=== PATIENT | male | born 1960 | race Hispanic/Latino ===

== ENCOUNTER → 2023-06-03 | Emergency (ER) | payer OTHER ==
[~2023-06-03] MED LIST: CEFTRIAXONE 1000 MG/VIAL ONE; FAMOTIDINE 20 MG/2 ML VIAL IV ONE; FENTANYL CITR 100 MCG/2 ML ONE; HYDRALAZINE HCL 20 MG/ML VIAL ONE; METOCLOPRAMIDE 10 MG/2mL INJ ONE; NA CHLORIDE 0.9% 250 ML ONE; ONDANSETRON 4 MG/2 ML VIAL ONE; PANTOPRAZOLE 40 MG INJ ONE
[2023-06-03 20:47] LABS: Urine Bacteria None Seen /HPF (<20); Urine Bilirubin NEGATIVE (Negative); Urine Blood Negative (Negative); Urine Clarity Clear (Clear); Urine Color Light-Yellow (Yellow); Urine Glucose 1+ (Negative); Urine Mucus Slight /HPF (None Seen); Urine Protein 1+ (Negative); Urine RBC <5 /HPF (None Seen); Urine Urobilinogen Normal (Normal); Urine pH 7.5 (5.0-7.0)
--- NOTE | 2023-06-03 20:49 | RAD REPORT ---
EXAM DESCRIPTION: CT - Chest Abd Pelvis Wo Con - 06/03/2023 8:39 pm CLINICAL HISTORY: Chest and abdomen pain. vomiting blood COMPARISON: <Comparisons> TECHNIQUE: A limited noncontrast study was performed. All CT scans are performed using dose optimization technique as appropriate and may include automated exposure control or mA/KV adjustment according to patient size. FINDINGS: The lungs are clear.No pleural or pericardial effusion.No intrathoracic adenopathy. Noncontrast assessment of the liver and spleen is unremarkable. Both kidneys appear atrophic, greater on the left. There is mild fullness seen in the region of the pancreatic uncinate process of uncerta in significance. Atherosclerosis of the abdominal aorta is seen. Mild free fluid is seen in the abdomen. Peritoneal dialysis catheter tubing coils in the pelvis. No b owel obstruction, free air or abscess. Normal appendix. No pathologic lymphadenopathy in the abdomen or pelvis. Postsurgical changes lower lumbar spine. IMPRESSION: No acute abnormality is detected. Fullness of the pancreatic uncinate process is noted of unclear significance. Pancreatitis is a possi bility and may be clinically correlated.
[2023-06-03 21:23] LABS: Hematocrit 27.3 % (39.6-49.0); MCV 86.1 fL (80-100); Platelets 315 thou/uL (152-406); RBC Red Blood Cell Count 3.17 M/uL (4.33-5.43)
[2023-06-03 21:41] LABS: Albumin 2.3 g/dL (3.4-5.0); Bilirubin Total 0.4 mg/dL (0.2-1.0); C-Reactive Protein 51.5 mg/L (<3.00); Potassium 5.1 mEq/L (3.5-5.1); Protein, Total 5.8 g/dL (6.4-8.2)
--- NOTE | 2023-06-03 22:28 | ER ---
Nurse's Notes [facility] Name: Qasim Lafleur Jr Age: 63 yrs Sex: Male : 1960 Arrival Date: 06/03/2023 Time: 19:22 Bed 20 Private MD: Diagnosis: Pancreatitis, history of peritoneal dialysis, nausea vomiting;Acute pancreatitis Presentation: 06/03 19:57 Chief complaint: Spouse and/or significant other states: having ABD and vomiting km8 starting last night; pt has had this issue before; trying to see a GI doctor. Coronavirus screen: Client denies travel out of the [place] in the last 14 days. Ebola Screen: No symptoms or risks identified at this time. Initial Sepsis Screen: Does the patient meet any 2 criteria? No. Patient's initial sepsis screen is negative. Does the patient have a suspected source of infection? No. Patient's initial sepsis screen is negative. Risk Assessment: Do you want to hurt yourself or someone else? Patient reports no desire to harm self or others. Onset of symptoms was June 02, 2023. 19:57 Method Of Arrival: Wheelchair km8 19:57 Acuity: YUNI 3 km8 Triage Assessment: 19:59 General: Appears uncomfortable, Behavior is cooperative, anxious, restless. Pain: km8 Complains of pain in abdomen Pain currently is 9 out of 10 on a pain scale. EENT: EKUK. Neuro: Level of Consciousness is awake, alert, obeys commands, Oriented to person, place, time, situation. Cardiovascular: Denies chest pain, shortness of breath, Patient's skin is warm and dry. Respiratory: Airway is patent Respiratory effort is even, labored, Respiratory pattern is regular, symmetrical. GI: Abdomen is flat, Reports lower abdominal pain, upper abdominal pain, nausea, vomiting, peritoneal dialysis. : No signs and/or symptoms were reported regarding the genitourinary system. Derm: Skin is intact, is healthy with good turgor, Skin is dry, Skin is pink, warm \T\ dry. normal, Skin temperature is warm. Musculoskeletal: No signs and/or symptoms reported regarding the musculoskeletal system. Circulation, motion, and sensation intact. Range of motion: intact in all extremities. Historical: - Allergies: 19:59 Codeine; km8 19:59 Morphine; km8 - PMHx: 19:59 Dialysis pt; Hypertensive disorder; km8 - PSHx: 19:59 None; km8 - Immunization history:: Client reports receiving the 2nd dose of the Covid vaccine, Flu vaccine is up to date. - Social history:: Smoking status: Reported history of juuling and/or vaping. Patient/guardian denies using tobacco, Stopped _ months ago 3 Patient/guardian denies using alcohol, street drugs. - Family history:: not pertinent. Screenin:15 [facility] ED Fall Risk Assessment (Adult) History of falling in the last 3 months, me1 including since admission No falls in past 3 months (0 pts) Confusion or Disorientation No (0 pts) Intoxicated or Sedated No (0 pts) Impaired Gait No (0 pts) Mobility Assist Device Used No (0 pt) Altered Elimination No (0 pt) Score/Fall Risk Level 0 - 2 = Low Risk Maintained a safe environment, Provided non-skid footwear, Hourly rounding (assess needs \T\ fall precautionary measures) done. Abuse screen: Denies threats or abuse. Nutritional screening: No deficits noted. Tuberculosis screening: No symptoms or risk factors identified. Assessment: 20:15 General: Appears uncomfortable, ill, well groomed, well developed, well nourished, me1 Behavior is calm, cooperative, appropriate for age, Reports feeling ill for 12-24 hours, fatigue for abdominal pain, n/v. Pain: Complains of pain in abdomen Pain does not radiate. Pain currently is 8 out of 10 on a pain scale. Quality of pain is described as crampy, Pain began gradually, 1 day ago. Is continuous. Neuro: Level of Consciousness is awake, alert, obeys commands, Oriented to person, place, time, situation, Appropriate for age. Cardiovascular: Capillary refill < 3 seconds Patient's skin is warm and dry. Respiratory: Airway is patent Respiratory effort is even, unlabored, Respiratory pattern is regular, symmetrical. GI: Peritoneal dialysis catheter capped. Bowel sounds present X 4 quads. Abd is soft and non tender X 4 quads. : Reports burning with urination. 06/04 00:00 Reassessment: Patient appears in no apparent distress at this time. Patient and/or km8 family updated on plan of care and expected duration. Pain level reassessed. Patient is alert, oriented x 3, equal unlabored respirations, skin warm/dry/pink. 00:00 General: Appears in no apparent distress. comfortable, Behavior is calm, cooperative, km8 appropriate for age. Neuro: Level of Consciousness is awake, alert, obeys commands, Oriented to person, place, time, situation, Appropriate for age. Cardiovascular: Patient's skin is warm and dry. Respiratory: Airway is patent Respiratory effort is even, unlabored, Respiratory pattern is regular, symmetrical. Vital Signs: 06/03 19:57 BP 177 / 104; Pulse 77; Resp 16; Temp 97.5(IR); Pulse Ox 100% on R/A; Weight 68.04 kg km8 (R); Height 5 ft. 9 in. (R); Pain 9/10; 21:17 BP 190 / 89; Pulse 77; Resp 16; Pulse Ox 97% on R/A; me1 21:45 BP 186 / 88; Pulse 78; Resp 18; Pulse Ox 97% on R/A; me1 22:30 BP 176 / 92; Pulse 80; Resp 18; Pulse Ox 96% on R/A; me1 23:00 BP 172 / 108; Pulse 81; Resp 18; Pulse Ox 97% on R/A; me1 23:28 BP 191 / 97; Pulse 82; Resp 18; Pulse Ox 97% on R/A; ca1 06/04 00:01 BP 158 / 93; Pulse 91; Resp 18; Pulse Ox 98% on R/A; me1 00:13 BP 145 / 66; Pulse 87; Resp 18; Pulse Ox 98% on R/A; 8 00:30 BP 142 / 75; Pulse 88; Resp 18; Pulse Ox 97% on R/A; km8 00:45 BP 161 / 81; Pulse 88; Resp 18; Pulse Ox 99% on R/A; 8 06/03 19:57 Body Mass Index 22.15 (68.04 kg, 175.26 cm) [facility] 06/03 19:57 Pain Scale: Adult [facility] ED Course: 06/03 19:27 Patient arrived in ED. gm2 19:58 Triage completed. km8 19:59 Arm band placed on right wrist. 8 20:12 Scott Walters MD is Attending Physician. sp4 20:15 Patient has correct armband on for positive identification. Bed in low position. Call [facility] in reach. Side rails up X2. Provided Education on: POC. Verbalized understanding. . 20:15 No provider procedures requiring assistance completed. me1 20:21 Anastasiia Crook, RN is Primary Nurse. me1 20:33 Urinalysis w/ reflexes Sent. me1 20:41 CT Chest Abdomen Pelvis W/O Contrast In Process Unspecified. EDMS 22:27 Initiated transfer to [facility], spoke with Teresa Yoon. 23:04 Pt accepted for transfer to [facility] Rm: [address] Arboleda Eliot \T\ 2247 per Teresa Yoon. 23:15 EMS accepted for transport with an ETA \T\ 2335. 23:29 US Abdomen Limited In Process Unspecified. EDMS 23:40 Patient transferred, IV remains in place. ca1 06/04 00:29 Called Jon with EMS to get an updated ETA, she stated they should've been here already and that she will call them now. Administered Medications: 06/03 21:26 Drug: Ondansetron IVP 8 mg IVP once; over 2 minutes Route: IVP; Site: right antecubital;me1 22:04 Follow up: Response: No adverse reaction; Nausea is decreased me1 21:26 Drug: fentaNYL (PF) IVP 50 mcg IVP once Route: IVP; Site: right antecubital; me1 22:03 Follow up: Response: No adverse reaction; Pain is decreased me1 21:26 Drug: metoCLOPramide IVP 10 mg IVP once; over 1 to 2 minutes Route: IVP; Site: right ca1 antecubital; 22:03 Follow up: Response: No adverse reaction me1 21:26 Drug: Pantoprazole IV 8 mg/hr IV at 25 ml/hr continuous; (Standard dilution is 80 mg in me1 250 mL NS) Route: IV; Rate: 25 ml/hr; Site: right antecubital; 21:27 Drug: Pantoprazole IVP 80 mg IVP once Route: IVP; Site: right antecubital; me1 22:03 Follow up: Response: No adverse reaction me1 21:27 Drug: Rocephin - Rocephin (cefTRIAXone) IVPB 1 grams IVPB once over 30 mins; (mix in 50 me1 mL NS) Route: IVPB; Infused Over: 30 mins; Site: right antecubital; 21:28 Follow up: IV Status: Completed infusion me1 22:03 Follow up: Response: No adverse reaction me1 21:27 Drug: Famotidine IVP 20 mg IVP once; dilute with 10 mL 0.9% NaCl; give over 2 minutes me1 Route: IVP; Site: right antecubital; 22:03 Follow up: Response: No adverse reaction me1 23:26 Drug: hydrALAZINE IVP 10 mg IVP once Route: IVP; Site: right antecubital; me1 23:40 Follow up: Response: No adverse reaction me1 06/04 00:53 Follow up: Response: Blood pressure is lowered km8 Medication: 06/03 20:15 VIS not applicable for this client. me1 Outcome: 22:27 ER care complete, transfer ordered by . sp4 23:40 Transferred by [facility] to [facility], Transfer form completed. me1 Note: report given to MARIKA Cabrales. 23:40 Condition: stable 23:40 Instructed on the need for transfer, 06/04 00:54 Patient left the ED. km8 Signatures: Dispatcher [employer] EDTeri Jenkins Sergey, MD MD sp4 Anastasiia Crook RN RN ca1 Helen Sutton 2 Steffanie Franklin, MARIKA RN km8 Corrections: (The following items were deleted from the chart) 06/03 21:58 19:57 Chief complaint: Spouse and/or significant other states: having ABD and vomiting me1 starting last night; pt has had this issue before; trying to see a GI doctor km8 06/04 00:30 06/03 23:04 Pt acceptedd for transfer to [facility] Rm: 501 by Eliot Thrasher \T\ 2247 per Teresa Yoon
--- NOTE | 2023-06-03 22:28 | EDPHYS ---
Physician Documentation [facility] Name: Qasim Lafleur Jr Age: 63 yrs Sex: Male : 1960 Arrival Date: 06/03/2023 Time: 19:22 Bed 20 Private MD: ED Physician Scott Walters HPI: 06/03 22:26 This 63 yrs old Male presents to ER via Wheelchair with complaints of sp4 Abdominal Pain, Nausea/Vomiting, dialysis patient. 22:49 Very pleasant 63-year-old male with history of peritoneal dialysis, end-stage renal sp4 disease and hypertensive disorder. History of chronic spinal pain. History of prior L5-S1 surgery. . Patient has presented with 1 day of vomiting, epigastric abdominal pain, diarrhea as well. Patient undergoes daily peritoneal dialysis at home. Patient is ill-appearing on presentation and has active dry heaving in the waiting room . . Historical: - Allergies: 19:59 Codeine; km8 19:59 Morphine; km8 - PMHx: 19:59 Dialysis pt; Hypertensive disorder; km8 - PSHx: 19:59 None; km8 - Immunization history:: Client reports receiving the 2nd dose of the Covid vaccine, Flu vaccine is up to date. - Social history:: Smoking status: Reported history of juuling and/or vaping. Patient/guardian denies using tobacco, Stopped _ months ago 3 Patient/guardian denies using alcohol, street drugs. - Family history:: not pertinent. ROS: 22:49 Constitutional: Negative for fever, chills, and weight loss, positive abdominal pain, sp4 positive epigastric pain, positive vomiting, positive diarrhea. 22:49 All other systems are negative, Exam: 22:27 Abdomen/GI: Rectal exam reveals no blood or melena. No seizure, no fistula, no mass, sp4 no hemorrhoids, 22:49 Constitutional: This is a well developed, well nourished patient who is awake, alert, sp4 ill-appearing male, pale, dry heaving on exam Head/Face: Normocephalic, atraumatic. Eyes: Pupils equal round and reactive to light, extra-ocular motions intact. Lids and lashes normal. Conjunctiva and sclera are not injected. Cornea within normal limits. Periorbital areas with no swelling, redness, or edema. ENT: Nares patent. No nasal discharge, no septal abnormalities noted. Tympanic membranes are normal and external auditory canals are clear. Oropharynx with no redness, swelling, or masses, exudates, or evidence of obstruction, uvula midline. Mucous membranes moist. Neck: Trachea midline, no thyromegaly or masses palpated, and no cervical lymphadenopathy. Supple, full range of motion without nuchal rigidity, or vertebral point tenderness. Chest/axilla: Normal chest wall appearance and motion. Nontender with no deformity. No lesions are appreciated. Cardiovascular: Regular rate and rhythm with a normal S1 and S2. No gallops, murmurs, or rubs. Normal PMI, no JVD. No pulse deficits. Respiratory: Lungs have equal breath sounds bilaterally, clear to auscultation and percussion. No rales, rhonchi or wheezes noted. No increased work of breathing, no retractions or nasal flaring. Abdomen/GI: Soft, with normal bowel sounds. No distension or tympany. No guarding or rebound. There is epigastric tenderness on exam, no distention, peritoneal dialysis left upper abdominal quadrant.. No tympany and no signs of ascites. Back: No spinal tenderness. No costovertebral tenderness. There is sacral decubitus ulcer that is covered by the wound VAC. Male : Normal genitalia with no discharge or lesions. Skin: Warm, dry with normal turgor. Normal color with no rashes, no lesions, and no evidence of cellulitis. MS/ Extremity: Pulses equal, no cyanosis. Neurovascular intact. Full, normal range of motion. Neuro: Awake and alert, GCS 15, oriented to person, place, time, and situation. Cranial nerves II-XII grossly intact. Motor strength 5/5 in all extremities. Sensory grossly intact. Psych: Awake, alert, with orientation to person, place and time. Behavior, mood, and affect are within normal limits Vital Signs: 19:57 BP 177 / 104; Pulse 77; Resp 16; Temp 97.5(IR); Pulse Ox 100% on R/A; Weight 68.04 kg km8 (R); Height 5 ft. 9 in. (R); Pain 9/10; 21:17 BP 190 / 89; Pulse 77; Resp 16; Pulse Ox 97% on R/A; me1 21:45 BP 186 / 88; Pulse 78; Resp 18; Pulse Ox 97% on R/A; me1 22:30 BP 176 / 92; Pulse 80; Resp 18; Pulse Ox 96% on R/A; me1 23:00 BP 172 / 108; Pulse 81; Resp 18; Pulse Ox 97% on R/A; me1 23:28 BP 191 / 97; Pulse 82; Resp 18; Pulse Ox 97% on R/A; me1 06/04 00:01 BP 158 / 93; Pulse 91; Resp 18; Pulse Ox 98% on R/A; me1 00:13 BP 145 / 66; Pulse 87; Resp 18; Pulse Ox 98% on R/A; km8 00:30 BP 142 / 75; Pulse 88; Resp 18; Pulse Ox 97% on R/A; km8 00:45 BP 161 / 81; Pulse 88; Resp 18; Pulse Ox 99% on R/A; [facility] 06/03 19:57 Body Mass Index 22.15 (68.04 kg, 175.26 cm) [facility] 06/03 19:57 Pain Scale: Adult [facility] MDM: 06/03 20:12 Patient medically screened. sp4 22:47 Data reviewed: vital signs, nurses notes, old medical records, EKG, radiologic studies, sp4 CT scan. Consideration of Admission/Observation Patient was admitted/placed on observation. Management of patient was discussed with the following: Hospitalist: Alphonse Mccabe MD - Hospitalist at [facility]. ED course: Patient was accepted for transfer to [facility]. Primary problem is peritoneal dialysis that cannot be managed at [facility] 22:53 Differential diagnosis: Nonspecific abd pain, gastritis, cholecystitis, pancreatitis, sp4 appendicitis, diverticulitis, viral gastroenteritis, gastroenteritis. ED course: CT - EXAM DESCRIPTION: CT - Chest Abd Pelvis Wo Con - 06/03/2023 8:39 pm CLINICAL HISTORY: Chest and abdomen pain. vomiting blood COMPARISON: TECHNIQUE: A limited noncontrast study was performed. All CT scans are performed using dose optimization technique as appropriate and may include automated exposure control or mA/KV adjustment according to patient size. FINDINGS: The lungs are clear.No pleural or pericardial effusion.No intrathoracic adenopathy. Noncontrast assessment of the liver and spleen is unremarkable. Both kidneys appear atrophic, greater on the left. There is mild fullness seen in the region of the pancreatic uncinate process of uncertain significance. Atherosclerosis of the abdominal aorta is seen. Mild free fluid is seen in the abdomen. Peritoneal dialysis catheter tubing coils in the pelvis. No bowel obstruction, free air or abscess. Normal appendix. No pathologic lymphadenopathy in the abdomen or pelvis. Postsurgical changes lower lumbar spine. IMPRESSION: No acute abnormality is detected. Fullness of the pancreatic uncinate process is noted of unclear significance. Pancreatitis is a possibility and may be clinically correlated.. 06/04 01:22 ED course: US - EXAM: US Abdomen Limited, Gallbladder CLINICAL HISTORY: ABD PAIN sp4 TECHNIQUE: Real-time ultrasound of the right upper quadrant with image documentation. COMPARISON: No relevant prior studies available. FINDINGS: Gallbladder: Unremarkable. No gallstones. Common bile duct: Unremarkable as visualized. No stones. No dilation. Pancreas: Unremarkable as visualized. Free fluid: Small amount of free fluid. IMPRESSION: No sonographic evidence of cholelithiasis or acute cholecystitis. . 06/03 20:12 Order name: CBC with Diff; Complete Time: 21:45 [facility] 06/03 22:46 Interpretation: HGB 8.8. [facility] 06/03 20:12 Order name: CMP; Complete Time: 21:45 [facility] 06/03 20:12 Order name: Lipase; Complete Time: 21:45 [facility] 06/03 20:12 Order name: Urinalysis w/ reflexes; Complete Time: 21:45 [facility] 06/03 20:22 Order name: Blood Culture Adult (2) [facility] 06/03 21:20 Order name: C-Reactive Protein; Complete Time: 21:45 EDMS 06/03 20:21 Order name: CT Chest Abdomen Pelvis W/O Contrast; Complete Time: 21:45 [facility] 06/03 22:40 Order name: US Abdomen Limited [facility] 06/03 20:12 Order name: IV Saline Lock; Complete Time: 22:04 [facility] 06/03 20:12 Order name: Labs collected and sent; Complete Time: 22:04 [facility] Administered Medications: 06/03 21:26 Drug: Ondansetron IVP 8 mg IVP once; over 2 minutes Route: IVP; Site: right antecubital;me1 22:04 Follow up: Response: No adverse reaction; Nausea is decreased me1 21:26 Drug: fentaNYL (PF) IVP 50 mcg IVP once Route: IVP; Site: right antecubital; me1 22:03 Follow up: Response: No adverse reaction; Pain is decreased me1 21:26 Drug: metoCLOPramide IVP 10 mg IVP once; over 1 to 2 minutes Route: IVP; Site: right me1 antecubital; 22:03 Follow up: Response: No adverse reaction me1 21:26 Drug: Pantoprazole IV 8 mg/hr IV at 25 ml/hr continuous; (Standard dilution is 80 mg in me1 250 mL NS) Route: IV; Rate: 25 ml/hr; Site: right antecubital; 21:27 Drug: Pantoprazole IVP 80 mg IVP once Route: IVP; Site: right antecubital; me1 22:03 Follow up: Response: No adverse reaction me1 21:27 Drug: Rocephin - Rocephin (cefTRIAXone) IVPB 1 grams IVPB once over 30 mins; (mix in 50 me1 mL NS) Route: IVPB; Infused Over: 30 mins; Site: right antecubital; 21:28 Follow up: IV Status: Completed infusion me1 22:03 Follow up: Response: No adverse reaction me1 21:27 Drug: Famotidine IVP 20 mg IVP once; dilute with 10 mL 0.9% NaCl; give over 2 minutes me1 Route: IVP; Site: right antecubital; 22:03 Follow up: Response: No adverse reaction me1 23:26 Drug: hydrALAZINE IVP 10 mg IVP once Route: IVP; Site: right antecubital; me1 23:40 Follow up: Response: No adverse reaction me1 06/04 00:53 Follow up: Response: Blood pressure is lowered km8 Disposition Summary: 06/03/23 22:27 Transfer Ordered Notes: Transfer Location: Other Acute Care Facility sp4 Reason: Higher level of care sp4 Condition: Stable sp4 Problem: new sp4 Symptoms: are unchanged sp4 Accepting Physician: [facility] Attending (06/04/23 00:54) km8 Diagnosis - Pancreatitis, history of peritoneal dialysis, nausea vomiting sp4 - Acute pancreatitis sp4 Forms: - Medication Reconciliation Form sp4 - SBAR form sp4 Signatures: Dispatcher [employer] Scott Leiva MD MD sp4 Anastasiia Crook, RN RN me1 Steffanie Franklin, RN RN km8 Corrections: (The following items were deleted from the chart) 06/03 21:20 20:22 C-REACTIVE PROTEIN+C.LAB.BRZ ordered. EDMS EDMS 06/04 00:54 06/03 22:27 [facility] Attending sp4 km8
[2023-06-04 04:11] VITALS: TEMP 97.5
[2023-06-04 04:23] VITALS: BP 161/81; O2SAT 99
--- NOTE | 2023-06-04 19:41 | RAD REPORT ---
EXAM DESCRIPTION: US Abdomen Limited, Gallbladder CLINICAL HISTORY: ABD PAIN TECHNIQUE: Real-time ultrasound of the right upper quadrant with image documentation. COMPARISON: No relevant prior studies available. FINDINGS: Gallbladder: Unremarkable. No gallstones. Common bile duct: Unremarkable as visualized. No stones. No dilation. Pancreas: Unremarkable as visualized. Free fluid: Small amount of free fluid. IMPRESSION: No sonographic evidence of cholelithiasis or acute cholecystitis. Electronically signed by: Bobbi Partida MD 06/04/2023 12:47 AM ROLL [employer]DER Due to temporary technical issues with the PACS/Fluency reporting system, reports are being signed by the in house radiologists without review as a courtesy to insure prompt reporting. The interpreting radiologist is fully responsible for the content of the report.
== END ==
LOC: ER 19:22
DX: K85.90 Acute pancreatitis without necrosis or infection, unspecified (principal); Z99.2 Dependence on renal dialysis; Z88.5 Allergy status to narcotic agent
CPT/HCPCS: 87040 ×2; 85025; 81001; 36415; 83690; 80053; 86140; 71250; 74176; 76705; 96375; 96374; 99285; J0360; J2765; C9113; J3010; J2405; J7050; J0696

== ENCOUNTER 2023-07-15 19:10 | Inpatient (IN) | payer OTHER ==
[2023-07-15] MEDS ORDERED: ONDANSETRON 4 MG/2 ML VIAL ONE (20:27)
[2023-07-15 20:28] LABS: Absolute Basophils 0.1 K/uL (0-0.5); Absolute Eosinophils 0.2 K/uL (0-0.5); Absolute Lymphocytes (CBC) 1.3 K/uL (0.7-4.9); Absolute Monocytes 0.7 K/uL (0.1-1.3); Absolute Neutrophil 4.1 K/uL (1.8-8.0); Basophils % 1.5 % (0-1.3); Eosinophils % 2.5 % (0-4.4); Hematocrit 29.6 % (39.6-49.0); Hemoglobin 9.8 g/dL (13.6-17.9); Lymphocytes % 20.9 % (15.3-44.8); MCH 29.9 pg (27.0-35.0); MCV 90.8 fL (80-100); Monocytes % 10.6 % (3.3-12.3); Neutrophils % 64.5 % (41.7-73.7); Platelets 372 thou/uL (152-406); RBC Red Blood Cell Count 3.26 M/uL (4.33-5.43); Red Cell Distribution Width 18.4 % (12.1-15.2)
[2023-07-15] MEDS ORDERED: MORPHINE 4 MG/ML SYR ONE (20:28)
[2023-07-15] MEDS ORDERED: DIPHENHYDRAMINE 50 MG/ML VIAL ONE (20:50)
[2023-07-15] MEDS ORDERED: METHYLPREDNISOLONE 125 MG INJ ONE (20:50)
[2023-07-15] MEDS ORDERED: FAMOTIDINE 20 MG/2 ML VIAL IV ONE (20:51)
[2023-07-15] MEDS ORDERED: FENTANYL CITR 100 MCG/2 ML ONE ×2 (20:51→23:02)
[2023-07-15] MEDS ORDERED: NA CHLORIDE 0.9% 100 ML ONE (20:53)
[2023-07-15] MEDS ORDERED: PIPERACIL/TAZO 3.375 GM VIAL IV ONE (20:53)
[2023-07-15 20:59] LABS: Albumin 1.7 g/dL (3.4-5.0); Albumin/Globulin Ratio 0.5 (1.1-1.8); Anion Gap 9.5 mEq/L (5.0-15.0); Bilirubin Total 0.3 mg/dL (0.2-1.0); Globulin 3.3 g/dL (2.3-3.5); Potassium 3.5 mEq/L (3.5-5.1)
[2023-07-15 21:06] LABS: Platelet Estimate ADEQ; White Blood Cell Scan OK (OK)
[2023-07-15 21:07] LABS: Anisocytosis 1+; Blood Morphology Comment NOTED (NOT SEEN); Ovalocytes 1+
--- NOTE | 2023-07-15 21:51 | ER ---
Nurse's Notes [facility] Name: Qasim Lafleur Jr Age: 63 yrs Sex: Male : 1960 Arrival Date: 07/15/2023 Time: 19:10 Bed 18 Private MD: Diagnosis: Other complication of vascular dialysis catheter-PERITONEAL, DAMAGED AND LEAKING Presentation: 07/15 19:22 Chief complaint: Patient states: "I got a peritoneal catheter about a year ago. I was jw7 picking at it today and it became dislodged and now it's leaking and hurts". Coronavirus screen: At this time, the client does not indicate any symptoms associated with coronavirus-19. Ebola Screen: No symptoms or risks identified at this time. Initial Sepsis Screen: Does the patient meet any 2 criteria? Yes Does the patient have a suspected source of infection? No. Patient's initial sepsis screen is negative. Risk Assessment: Do you want to hurt yourself or someone else? Patient reports no desire to harm self or others. Onset of symptoms was July 15, 2023. 19:22 Method Of Arrival: EMS: [facility] 19:22 Acuity: YUNI 3 jw7 Triage Assessment: 19:26 General: Appears in no apparent distress. uncomfortable, Behavior is cooperative, jw7 fussy, restless. Pain: Complains of pain in abdomen. EENT: No deficits noted. No signs and/or symptoms were reported regarding the EENT system. Neuro: Sanchez Agitation-Sedation Scale (RASS): 0 - Alert and Calm Level of Consciousness is awake, alert, obeys commands, Oriented to person, place, time, situation. Cardiovascular: Heart tones S1 S2 present Capillary refill < 3 seconds Patient's skin is warm and dry. Respiratory: Airway is patent Trachea midline Respiratory effort is even, unlabored, Respiratory pattern is regular, symmetrical. GI: Abdomen is flat, non-distended, Peritoneal dialysis catheter capped. catheter to dialysis set up. Site is clean, and leaking clear fluid Reports lower abdominal pain, Pain is 10 out of 10 on a pain scale. : No deficits noted. No signs and/or symptoms were reported regarding the genitourinary system. Derm: Skin is intact, is healthy with good turgor, Skin is dry, Skin is normal, Skin temperature is warm. Musculoskeletal: Circulation, motion, and sensation intact. Range of motion: intact in all extremities. Historical: - Allergies: 19:26 No Known Allergies; jw7 - Home Meds: 19:26 Unknown [Active]; jw7 - PMHx: 19:26 Dialysis pt; Hypertensive disorder; jw7 - PSHx: 19:26 Peritoneal Catheter (Hypertensive disorder); jw7 - Immunization history:: Adult Immunizations up to date, Client reports receiving the 2nd dose of the Covid vaccine, Flu vaccine is up to date. - Social history:: Smoking status: Reported history of juuling and/or vaping. Patient/guardian denies using alcohol, street drugs. - Family history:: not pertinent. Screenin:38 [facility] ED Fall Risk Assessment (Adult) History of falling in the last 3 months, jw7 including since admission No falls in past 3 months (0 pts) Score/Fall Risk Level 0 - 2 = Low Risk Oriented to surroundings, Maintained a safe environment, Educated pt \\T\\ family on fall prevention, incl call for assistance when getting out of bed. Abuse screen: Denies threats or abuse. Denies injuries from another. Nutritional screening: No deficits noted. Tuberculosis screening: No symptoms or risk factors identified. Assessment: 19:30 General: See Triage Assessment. jw7 20:30 Reassessment: Patient appears in no apparent distress at this time. No changes from jw7 previously documented assessment. Patient and/or family updated on plan of care and expected duration. Pain level reassessed. Patient is alert, oriented x 3, equal unlabored respirations, skin warm/dry/pink. 21:30 Reassessment: Patient appears in no apparent distress at this time. Patient and/or jw7 family updated on plan of care and expected duration. Pain level reassessed. Patient is alert, oriented x 3, equal unlabored respirations, skin warm/dry/pink. Patient states feeling better. 22:30 Reassessment: Patient appears in no apparent distress at this time. Patient and/or jw7 family updated on plan of care and expected duration. Pain level reassessed. Patient is alert, oriented x 3, equal unlabored respirations, skin warm/dry/pink. 23:30 Reassessment: Patient appears in no apparent distress at this time. Patient and/or jw7 family updated on plan of care and expected duration. Pain level reassessed. Patient is alert, oriented x 3, equal unlabored respirations, skin warm/dry/pink. 07/16 01:13 General: Attempted to call report, MARIKA Lam will call back . [facility] Vital Signs: 07/15 19:22 BP 176 / 88; Pulse 113; Resp 23 S; Temp 98.6(O); Pulse Ox 97% on R/A; Weight 65.77 kg; jw7 Height 5 ft. 9 in. ; Pain 10/10; 20:30 BP 183 / 98; Pulse 72; Resp 20 S; Pulse Ox 100% on R/A; jw7 21:30 BP 182 / 88; Pulse 69; Resp 20 S; Pulse Ox 100% on R/A; jw7 22:30 BP 186 / 122; Pulse 68; Resp 19 S; Pulse Ox 100% on R/A; jw7 23:30 BP 191 / 91; Pulse 69; Resp 18 S; Pulse Ox 100% on R/A; jw7 19:22 Body Mass Index 21.41 (65.77 kg, 175.26 cm) [facility] 19:22 Pain Scale: Adult [facility] ED Course: 19:13 Patient arrived in ED. ty 19:22 Adriana Spivey, RN is Primary Nurse. [facility] 19:26 Triage completed. [facility] 19:26 Arm band placed on. 7 19:30 Inserted saline lock: 22 gauge in right antecubital area, using aseptic technique. ha1 Blood collected. 19:38 Patient has correct armband on for positive identification. Bed in low position. Call [facility] light in reach. Side rails up X 1. 20:05 Efe Villarreal MD is Attending Physician. barbara 21:51 Taras Dunham MD is Hospitalizing Provider. [facility] 07/16 01:06 No provider procedures requiring assistance completed. Patient admitted, IV remains in jw7 place. 01:07 Provided Education on: need for admit. [facility] Administered Medications: 07/15 20:38 Drug: Ondansetron IVP 4 mg IVP once; over 2 minutes Route: IVP; Site: right antecubital;jw7 21:54 Follow up: Response: No adverse reaction [facility] 20:40 Drug: morphine IVP or IV 4 mg IVP once over 4 mins Route: IVP; Infused Over: 4 mins; jw7 Site: right antecubital; 20:40 Follow up: Response: Adverse reaction, Physician notified jw7 22:04 Drug: fentaNYL (PF) IVP 25 mcg IVP once Route: IVP; Site: right antecubital; jw7 07/16 01:07 Follow up: Response: No adverse reaction; Marked relief of symptoms jw7 07/15 22:05 Drug: Piperacillin-Tazobactam IVPB 3.375 grams IVPB once over 60 mins; (mix in NS 100 jw7 mL) Route: IVPB; Infused Over: 60 mins; Site: right antecubital; 07/16 01:08 Follow up: Response: No adverse reaction; IV Status: Completed infusion; IV Intake: jw7 100ml 07/15 22:05 Drug: Famotidine IVP 20 mg IVP once; dilute with 10 mL 0.9% NaCl; give over 2 minutes jw7 Route: IVP; Site: right antecubital; 07/16 01:08 Follow up: Response: No adverse reaction jw7 07/15 22:05 Drug: diphenhydrAMINE IVP 25 mg IVP once Route: IVP; Site: right antecubital; jw7 07/16 01:08 Follow up: Response: No adverse reaction jw7 07/15 22:05 Drug: MethylPrednisoLONE IVP 125 mg IVP once Route: IVP; Site: right antecubital; jw7 07/16 01:08 Follow up: Response: No adverse reaction jw7 07/15 23:10 Drug: fentaNYL (PF) IVP 25 mcg IVP once Route: IVP; Site: right antecubital; jw7 07/16 01:07 Follow up: Response: No adverse reaction; Marked relief of symptoms jw7 Medication: 01:07 VIS not applicable for this client. jw7 Intake: 01:08 IV: 100ml; Total: 100ml. jw7 Outcome: 07/15 21:51 Decision to Hospitalize by Provider. barbara 07/16 01:06 Admitted to Med/surg accompanied by tech, via wheelchair, room 224, jw7 Condition: stable Instructed on the need for admit, Demonstrated understanding of instructions, 03:07 Patient left the ED. jw7 Signatures: Efe Villarreal MD MD cha Waits, Jodi RN RN jw7 Erika Mendez RN RN ha1 Tavares Lee Corrections: (The following items were deleted from the chart) 07/15 19: Allergies: Codeine; jw7 jw7 Allergies: Morphine; jw7 jw7
--- NOTE | 2023-07-15 21:51 | EDPHYS ---
Physician Documentation [facility] Name: Qasim Lafleur Jr Age: 63 yrs Sex: Male : 1960 Arrival Date: 07/15/2023 Time: 19:10 Bed 18 Private MD: ED Physician Efe Villarreal HPI: 07/15 21:26 This 63 yrs old Male presents to ER via EMS with complaints of [employer].barbara 21:26 The patient presents with abdominal distention. Onset: The symptoms/episode barbara began/occurred today. The symptoms do not radiate. Severity of pain: At its worst the pain was very mild in the emergency department the pain is unchanged. The patient has not experienced similar symptoms in the past. Historical: - Allergies: 19:26 No Known Allergies; jw7 - Home Meds: 19:26 Unknown [Active]; jw7 - PMHx: 19:26 Dialysis pt; Hypertensive disorder; jw7 - PSHx: 19:26 Peritoneal Catheter (Hypertensive disorder); jw7 - Immunization history:: Adult Immunizations up to date, Client reports receiving the 2nd dose of the Covid vaccine, Flu vaccine is up to date. - Social history:: Smoking status: Reported history of juuling and/or vaping. Patient/guardian denies using alcohol, street drugs. - Family history:: not pertinent. ROS: 21:26 Constitutional: Negative for fever, chills, and weight loss, Eyes: Negative for injury, barbara pain, redness, and discharge, ENT: Negative for injury, pain, and discharge, Neck: Negative for injury, pain, and swelling, Cardiovascular: Negative for chest pain, palpitations, and edema, Respiratory: Negative for shortness of breath, cough, wheezing, and pleuritic chest pain, Abdomen/GI: Negative for abdominal pain, nausea, vomiting, diarrhea, and constipation, Back: Negative for injury and pain, : Negative for injury, bleeding, discharge, and swelling, MS/Extremity: Negative for injury and deformity, Skin: Negative for injury, rash, and discoloration, Neuro: Negative for headache, weakness, numbness, tingling, and seizure, Psych: Negative for depression, anxiety, suicide ideation, homicidal ideation, and hallucinations, Allergy/Immunology: Negative for hives, rash, and allergies, Endocrine: Negative for neck swelling, polydipsia, polyuria, polyphagia, and marked weight changes, Hematologic/Lymphatic: Negative for swollen nodes, abnormal bleeding, and unusual bruising, Exam: 21:26 Constitutional: This is a well developed, well nourished patient who is awake, alert, barbara and in no acute distress. Head/Face: Normocephalic, atraumatic. Eyes: Pupils equal round and reactive to light, extra-ocular motions intact. Lids and lashes normal. Conjunctiva and sclera are non-icteric and not injected. Cornea within normal limits. Periorbital areas with no swelling, redness, or edema. ENT: Nares patent. No nasal discharge, no septal abnormalities noted. Tympanic membranes are normal and external auditory canals are clear. Oropharynx with no redness, swelling, or masses, exudates, or evidence of obstruction, uvula midline. Mucous membranes moist. Neck: Trachea midline, no thyromegaly or masses palpated, and no cervical lymphadenopathy. Supple, full range of motion without nuchal rigidity, or vertebral point tenderness. No Meningismus. Chest/axilla: Normal chest wall appearance and motion. Nontender with no deformity. No lesions are appreciated. Cardiovascular: Regular rate and rhythm with a normal S1 and S2. No gallops, murmurs, or rubs. Normal PMI, no JVD. No pulse deficits. Respiratory: Lungs have equal breath sounds bilaterally, clear to auscultation and percussion. No rales, rhonchi or wheezes noted. No increased work of breathing, no retractions or nasal flaring. Back: No spinal tenderness. No costovertebral tenderness. Full range of motion. Male : Normal genitalia with no discharge or lesions. Skin: Warm, dry with normal turgor. Normal color with no rashes, no lesions, and no evidence of cellulitis. MS/ Extremity: Pulses equal, no cyanosis. Neurovascular intact. Full, normal range of motion. Neuro: Awake and alert, GCS 15, oriented to person, place, time, and situation. Cranial nerves II-XII grossly intact. Motor strength 5/5 in all extremities. Sensory grossly intact. Cerebellar exam normal. Normal gait. Psych: Awake, alert, with orientation to person, place and time. Behavior, mood, and affect are within normal limits. 21:26 Abdomen/GI: Exam negative for acute changes, Inspection: abdomen appears normal, Bowel sounds: normal, Palpation: abdomen is soft and non-tender, Liver: no appreciated palpable abnormalities, Hernia: not appreciated, 22:08 ECG was reviewed by the Attending Physician. [facility] Vital Signs: 19:22 BP 176 / 88; Pulse 113; Resp 23 S; Temp 98.6(O); Pulse Ox 97% on R/A; Weight 65.77 kg; jw7 Height 5 ft. 9 in. ; Pain 10/10; 20:30 BP 183 / 98; Pulse 72; Resp 20 S; Pulse Ox 100% on R/A; jw7 21:30 BP 182 / 88; Pulse 69; Resp 20 S; Pulse Ox 100% on R/A; jw7 22:30 BP 186 / 122; Pulse 68; Resp 19 S; Pulse Ox 100% on R/A; jw7 23:30 BP 191 / 91; Pulse 69; Resp 18 S; Pulse Ox 100% on R/A; 7 19:22 Body Mass Index 21.41 (65.77 kg, 175.26 cm) [facility] 19:22 Pain Scale: Adult [facility] MDM: 20:05 Patient medically screened. [facility] 21:30 Data reviewed: vital signs, nurses notes, lab test result(s), EKG, radiologic studies, [facility] plain films. Consideration of Admission/Observation Escalation of care including admission/observation considered. I considered the following discharge prescriptions or medication management in the emergency department Medications were administered in the Emergency Department. See MAR. Independent interpretation of the following test(s) in the Emergency Department EKG: See my EKG interpretation above. Test considered but Not performed: CT: NO CT ABD. Historians other than the Patient: PT WELL INFORMED. Care significantly affected by the following chronic conditions: Diabetes, Hypertension, Chronic Kidney Disease. 07/15 20:01 Order name: CBC with Diff; Complete Time: 21:36 ha1 07/15 20:01 Order name: CMP; Complete Time: 21:36 ha1 07/15 20:01 Order name: Lipase; Complete Time: 21:36 ha1 07/15 21:07 Order name: CBC Smear Scan; Complete Time: 21:36 EDMS 07/15 22:35 Order name: Protime (+INR) EDAL 07/15 20:37 Order name: EKG; Complete Time: 20:38 [facility] 07/15 22:19 Order name: CONS Physician Consult EDAL 07/15 20:01 Order name: IV Saline Lock; Complete Time: 20:02 [facility] 07/15 20:01 Order name: Labs collected and sent; Complete Time: 20:02 [facility] 07/15 20:37 Order name: EKG - Nurse/Tech; Complete Time: 21:57 [facility] 07/15 20:37 Order name: Wound dressing; Complete Time: 21:57 [facility] EC:08 Rate is 68 beats/min. QRS [place] is Normal. DC interval is normal. QRS interval is [facility] normal. QT interval is normal. No Q waves. T waves are Normal. No ST changes noted. Clinical impression: NSR w/ Non-specific ST/T Changes and No evidence of ischemia. Interpreted by me. Reviewed by me. Administered Medications: 20:38 Drug: Ondansetron IVP 4 mg IVP once; over 2 minutes Route: IVP; Site: right antecubital;jw7 21:54 Follow up: Response: No adverse reaction jw7 20:40 Drug: morphine IVP or IV 4 mg IVP once over 4 mins Route: IVP; Infused Over: 4 mins; jw7 Site: right antecubital; 20:40 Follow up: Response: Adverse reaction, Physician notified jw7 22:04 Drug: fentaNYL (PF) IVP 25 mcg IVP once Route: IVP; Site: right antecubital; jw7 07/16 01:07 Follow up: Response: No adverse reaction; Marked relief of symptoms jw7 07/15 22:05 Drug: Piperacillin-Tazobactam IVPB 3.375 grams IVPB once over 60 mins; (mix in NS 100 jw7 mL) Route: IVPB; Infused Over: 60 mins; Site: right antecubital; 07/16 01:08 Follow up: Response: No adverse reaction; IV Status: Completed infusion; IV Intake: jw7 100ml 07/15 22:05 Drug: Famotidine IVP 20 mg IVP once; dilute with 10 mL 0.9% NaCl; give over 2 minutes jw7 Route: IVP; Site: right antecubital; 07/16 01:08 Follow up: Response: No adverse reaction jw7 07/15 22:05 Drug: diphenhydrAMINE IVP 25 mg IVP once Route: IVP; Site: right antecubital; jw7 07/16 01:08 Follow up: Response: No adverse reaction 7 07/15 22:05 Drug: MethylPrednisoLONE IVP 125 mg IVP once Route: IVP; Site: right antecubital; jw7 07/16 01:08 Follow up: Response: No adverse reaction 7 07/15 23:10 Drug: fentaNYL (PF) IVP 25 mcg IVP once Route: IVP; Site: right antecubital; jw7 07/16 01:07 Follow up: Response: No adverse reaction; Marked relief of symptoms jw7 Disposition Summary: 07/15/23 21:51 Hospitalization Ordered Notes: Hospitalization Status: Inpatient Admission barbara Provider: Taras Dunham cha Condition: Stable barbara Problem: new barbara Symptoms: have improved barbara Bed/Room Type: Standard barbara Location: Telemetry/MedSurg (Inpatient)(07/16/23 00:56) rv1 Room Assignment: [facility](07/16/23 00:56) rv1 Diagnosis - Other complication of vascular dialysis catheter - PERITONEAL, DAMAGED AND LEAKING barbara Forms: - Medication Reconciliation Form barbara - SBAR form barbara - Leadership Thank You Letter [facility] Signatures: Dispatcher [employer] EDEfe Jeronimo MD MD cha Waits, Jodi, RN RN Erika Helms RN RN [place] rv1 Corrections: (The following items were deleted from the chart) 07/15 20:21 19:26 Allergies: Codeine; jw7 7 20:21 19:26 Allergies: Morphine; jw7 jw7 22:24 21:51 Telemetry/MedSurg (Inpatient) barbara rv1 22:24 21:51 barbara rv1 07/16 00:56 07/15 22:24 [facility] ER HOLD rv1 rv1 07/16 00:56 07/15 22:24 ERHOLD- rv1 rv1
--- NOTE | 2023-07-15 22:19 | P.HP ---
Certification for Inpatient With expected LOS: >2 Midnights Patient will require the following post-hospital care: None Practitioner: I am a practitioner with admitting privileges, knowledge of patient current condition, hospital course, and medical plan of care. Services: Services provided to patient in accordance with Admission requirements found in Title 42 Section 412.3 of the Code of Federal Regulations Patient History Date of Service: 07/15/23 Reason for admission: Leaking peritoneal catheter History of Present Illness: Patient is 63 years of age was recently discharged from [facility] was there for 2 weeks with abdominal pain and he left AMA apparently came back and he accidentally nicked his peritoneal catheter and started leaking considerably. He still has his chronic abdominal discomfort no other complaint - Past Medical/Surgical History -: End-stage renal disease -: Hypertension -: Peritoneal dialysis - Social History Smoking Status: Current every day smoker Smoking therapy provided: Yes Review of Systems 10-point ROS is otherwise unremarkable Gastrointestinal: Abdominal Pain Physical Examination - Vital Signs Temperature: 98.6 F Blood Pressure: 176/88 Pulse: 113 Respirations: 23 Pulse Ox (%): 97 - Physical Exam General: Alert, Oriented x3 HEENT: Atraumatic Neck: Supple Respiratory: Clear to auscultation bilaterally Cardiovascular: No edema, Regular rate/rhythm, Normal S1 S2 Gastrointestinal: Normal bowel sounds, Tenderness (Mild epigastric tenderness with significant leak from the peritoneal dialysis catheter) Musculoskeletal: No clubbing, Other (He does have a cyst over his left shoulder/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 He has chronic abdominal pain was recently discharged from [facility] was treated with painkillers and has chronic renal failure mild hyponatremia sodium 135 otherwise vital signs are all stable Dr. Rubin has been consulted he is scheduled to have a replacement of his peritoneal dialysis catheter possibly an arterial catheter placed in the interim. (2) Other bursal cyst, left shoulder Current Visit: Yes Status: Acute Plan: Patient has a cyst over his left shoulder nontender will have Dr. Scottie jacobs evaluate - Advance Directives Does patient have a Living Will: No Does patient have a Durable POA for Healthcare: No
[2023-07-15] MEDS ORDERED: MORPHINE 2 MG/ML SYR IV PRN (22:33)
[2023-07-16 00:42] VITALS: BMI 21.2
[2023-07-16 02:10] LABS: PT Prothrombin Time 12.6 SECONDS (9.5-12.5); Protime INR 1.15
[2023-07-16] MEDS: LOSARTAN POTASSIUM 50 MG TABLET PO SCH (03:23)
[2023-07-16] MEDS: carvediloL 25 MG TAB PO SCH (03:23)
[2023-07-16] MEDS: HYDROMORPHONE HCL 2 MG/ML inj IV PRN (04:41)
--- NOTE | 2023-07-16 08:14 | P.PN ---
Subjective Date of Service: 07/16/23 Chief Complaint: Leaking peritoneal catheter Patient is 63 years of age was recently discharged from [facility] was there for 2 weeks with abdominal pain and he left AMA apparently came back and he accidentally nicked his peritoneal catheter and started leaking considerably. 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) Integumentary: No rashes, No breakdown, No significant lesion Review of Systems PER HPI Physical Examination - Vital Signs Temperature: 98.2 F Blood Pressure: 184/96 Pulse: 84 Respirations: 18 Pulse Ox (%): 98 - Studies Laboratory Data (last 24 hrs) 07/15/23 07/15/23 20:05 20:05 WBC 6.30 Hgb 9.8 L Hct 29.6 L Plt Count 372 Sodium 135 L Potassium 3.5 BUN 63 H Creatinine 8.54 H Glucose 87 Total Bilirubin 0.3 AST 19 ALT 16 Alkaline Phosphatase 106 Lipase 68 Assessment And Plan - Plan - Problems (Diagnosis) Leakage of peritoneal dialysis catheter End-stage renal disease, peritoneal dialysis Current Visit: Yes Status: Acute Plan: Patient is 63 years of age admitted with a leaking peritoneal dialysis catheter apparently he to gently damaged it. He has chronic abdominal pain was recently discharged from [facility] was treated with painkillers and has chronic renal failure mild hyponatremia sodium 135 otherwise vital signs are all stable Dr. Rubin has been consulted he is scheduled to have a replacement of his peritoneal dialysis catheter possibly an arterial catheter placed in the interim. Nephrology consulted Other bursal cyst, left shoulder Current Visit: Yes Status: Acute Plan: Patient has a cyst over his left shoulder nontender will have Dr. Scottie jacobs evaluate Hypertensive urgency As needed antihypertensive Diet n.p.o. Full code code DVT SCDs Disposition : resides at home Discharge Plan: Home - Code Status/Comfort Care Code Status: Full Code Critical Care: No Time Spent Managing PTS Care (In Minutes): 35
[2023-07-16] MEDS: NA CHLORIDE 0.9% 50 ML ONE (10:32)
[2023-07-16] MEDS: SUGAMMADEX SODIUM 200 MG/2 ML VIAL IV ONE (10:41)
[2023-07-16] MEDS: NA CHLORIDE 0.9% 500 ML ONE (10:48)
[2023-07-16] MEDS ORDERED: propofoL 200 MG/20 ML VIAL IV ONE (10:53)
[2023-07-16] MEDS ORDERED: LIDOCAINE 2% MPF 5 ML VIAL ONE (10:54)
[2023-07-16] MEDS ORDERED: ROCURONIUM 50 MG/5 ML VIAL IV ONE (10:54)
[2023-07-16] MEDS ORDERED: FENTANYL CITR 100 MCG/2 ML ONE (10:54)
[2023-07-16] MEDS ORDERED: Phenylephrine HCl 10 MG/ML 1 ML VIAL ONE (11:14)
[2023-07-16] MEDS ORDERED: NS 0.9% VIAL 10 ML ONE ×2 (11:15)
--- NOTE | 2023-07-16 11:18 | CON ---
Date of Consultation: 07/16/2023 Reason For Consult: ESRD. History Of Present Illness: Mr. Lafleur is a 63-year-old male with past medical history significant f or history of end-stage renal disease, on peritoneal dialysis over the last 3 years, hypertension, re current admissions for severe chest pain associated with PTSD and anxiety. He was at [facility] and left AMA, not sure what he was there for. The patient came back because his peritoneal catheter broke and started leaking fluid. He has chronic abdominal discomfort and has had lot of vipul ght loss as well as failure to thrive with severe depression. Past Medical History: Significant for ESRD, hypertension, history of coronary artery disease. Social History: He is a smoker. No history of alcohol use reported at this time. Denies any illici t drug use. Review of Systems: Nausea, vomiting, decreased p.o. intake, a weight loss of about 10-20 pounds in the last 3-4 months. Recurrent admissions for recurrent pancreatitis. Physical Examination: Vital signs: At this time have been reviewed and are stable. General: He appears in no acute distress, cachectic and malnourished. HEENT: Atraumatic head. Lungs: Clear to auscultation. Abdomen: Soft and nontender. PD catheter is in place, but has been broken off. Extremities: Show no evidence of edema. He is alert, awake, and oriented x3. Laboratory Data: Showing the labs consistent with ESRD with chronic anemia secondary to previous kid ping disease with hemoglobin of 9.8. Current Medications: Have been reviewed in detail. Impression: 1.End-stage renal disease, on dialysis with a malfunction of PD catheter. At this point, there is a concern for underlying sclerosing peritonitis and failure to thrive with recurrent episodes of abdom inal pain and decreased appetite with weight loss. We will try to replace PD catheter. Discussed wi th Dr. Kapoor. If there are any signs of sclerosing peritonitis or radiations may need to hold off on PD catheter placement and switch over to hemodialysis. I have also requested for a tunneled dialy sis catheter placement by Dr. Kapoor and will switch him over to hemodialysis at least temporarily f or right now and monitor him closely. The patient is agreeable with that plan. His home medications can be resumed and labs can be monitored closely. The plan was discussed with the patient in detail . All questions were answered. His is also at bedside and she is agreeable with the plan as we ll. [place]/EVERETT Voice ID: [id number] Report ID: [id number]
[2023-07-16] MEDS: CEFAZOLIN SODIUM 2 GM/VIAL ONE (11:20)
[2023-07-16] MEDS ORDERED: MIDAZOLAM HCL 2 MG/2 ML INJ ONE (11:26)
[2023-07-16] MEDS: HEPARIN 5000 UNIT/ML 1 ML VIAL ONE (11:35)
[2023-07-16] MEDS: BUPIVACAINE 0.25% PF 30 ML VIAL ONE (11:35)
[2023-07-16] MEDS: HEPARIN 500 UNIT/5 ML SYR IV ONE ×2 (11:45→11:50)
[2023-07-16] MEDS: HYDRALAZINE HCL 20 MG/ML VIAL ONE (12:13)
[2023-07-16] MEDS ORDERED: ONDANSETRON 4 MG/2 ML VIAL ONE (12:37)
--- NOTE | 2023-07-16 12:37 | P.OP ---
Preoperative diagnosis: Dependent on Dialysis Postoperative diagnosis: Dependent on Dialysis Primary procedure: Laparoscopic Replacement of Tunelled Peritoneal Dialysis Catheter Secondary procedure: Placement of Tunelled RIGHT IJ Hemodialysis Catheter using ultrasound Other procedure(s): Flouroscopy with interpretation, removal of Tunneled PD Catheter Anesthesia: GETA + Local Estimated blood loss: <15cc Specimen: PD catheter for ID only Findings: Damaged / Fractured PD catheter, metal interlink in tubing Complications: None Implants: Coy Double Cuff PD Catheter, 19cm Cuffed HD Catheter Transferred to: Recovery Room Condition: Good
--- NOTE | 2023-07-16 12:52 | RAD REPORT ---
EXAM DESCRIPTION: RAD - Fluoroscopy <1 Hour - 07/16/2023 12:40 pm CLINICAL HISTORY: HD CATH COMPARISON: None available. FINDINGS: Four Images were sent to PACS, documenting fluoroscopy use during hemodialysis catheter pl acement procedure. No radiologist was available for the procedure, nor will any image interpretation he provided. Please refer to the procedural report for additional details. Fluoroscopy time: 0.1 Minutes. IMPRESSION: Documentation of fluoroscopy utilization as above.
[2023-07-16] MEDS: HYDROMORPHONE HCL 1 MG/ML INJ ONE ×2 (13:30→13:45)
--- NOTE | 2023-07-16 14:45 | OP ---
Date of Procedure: 07/16/2023 Surgeon: Adrian Kapoor MD, Brief History Of Present Illness: The patient is a 63-year-old male known to me from other issues sp ecifically a mass of his left shoulder that I saw in the recent history and ordered a CT scan, which was not performed as he was hospitalized at [facility] for pancreatitis. He states his pancr eatitis resolved and he was still in the hospital as he had decreased p.o. intake and left AMA at saroj t point. After he got home, he started to pick at peritoneal dialysis catheter, which had been funct ional for approximately 3 years. He ripped a hole in the peritoneal dialysis catheter right at the i nsertion point as such he came to the hospital with the above-stated complaints. The catheter was fo und to be leaking and ruptured and as such, I was consulted to evaluate the patient. Preoperative Diagnosis: Dependent on renal dialysis. Postoperative Diagnosis: Dependent on renal dialysis. Procedures Performed: 1.Laparoscopic replacement of a tunneled double cuffed peritoneal dialysis catheter. 2.Removal of tunneled peritoneal dialysis catheter, which was fractured. 3.Placement of a tunneled right internal jugular hemodialysis catheter using ultrasound fluoroscopic guidance with interpretation. Anesthesia: General endotracheal plus local with 0.25% Marcaine. Estimated Blood Loss: Less than 5 cc. Specimen: PD catheter for IV only. Findings: Damaged, fractured peritoneal dialysis catheter was noted coming out of the left abdominal wall and a metal Interlink extension tubing was appreciated in the subcutaneous position creating si gnificant scar tissue and a tunneling track from 2 catheter connecting points. Complications: None. Implants: Merit double cuffed peritoneal dialysis catheter and a 19 cm cuffed HemoSplit hemodialysis catheter. The patient was transferred to recovery room in good condition. Procedure In Detail: After informed consent was obtained, patient was brought to the operating room, prepped and draped in the usual sterile fashion. After adequate anesthesia was achieved, I placed a single incision in the left upper quadrant of the subcutaneous tissues. I then placed a 5 mm surgic al optical trocar in the abdomen without incident or complication. Insufflation was obtained to 12 m mHg at this time, reduced at 9 mmHg as the patient had a very thin abdominal wall. The patient had e vidence of previous hernias on the abdominal wall through the tract of the peritoneal dialysis cathet er. As I evaluated, I found the catheter to be malpositioned in the right lower quadrant and as it w as fractured right at the insertion point near the cuff with an exposed cuff, I opted to replace this catheter. The patient had been premarked with a Merit double cuffed peritoneal dialysis catheter on standard position at the pubic tubercle. Template was used. At this point, following the premarked areas, I made an incision on the right side of the abdomen down to subcutaneous tissue. After appro priately anesthetizing the skin following the premarked areas, I inserted the introducer sheath elise la after appropriately lubricating and angling under 45 degrees angle toward the coccyx and sacrum. At this point, the introducer sheath remained in place. I performed dilation of this area and then p laced a catheter double cuffed Merit peritoneal dialysis catheter with the deep cuff being placed in the posterior aspect of the rectus sheath and the catheter had a smooth curve toward the midline and was placed in the pelvis. At this point, the orientation line was kept posterior throughout the proc edure. I then attached the tunneling device and following the premarked area, I brought the tunnelin g device out through a separate right-sided abdominal incision and brought the catheter at this point . The catheter was flushed at this point, was functioning quite well at this point of the procedure. As such, the cap was placed on the end of this. I then cleansed the area and closed the incision u sing a 4-0 Monocryl in a running fashion and Dermabond placed over top. At this point, I proceeded t o dilate up the previous left-sided peritoneal fractured catheter tunneling tract. I made an incisio n overlying this area to allow for bringing up the cuff into the operative field. The cuff was appre ciated at this point and the patient had a total of 3 cuffs in fact as it appears that the catheter h ad been connected to another peritoneal dialysis catheter through a metal extension tubing, which was placed in the subcutaneous position. I proceeded to deliver this after removing the cuffs into the field and removed this portion of the catheter at this point, including the metal tubing and extensio n tubing. I then made a counter incision overlying the rectus sheath at the insertion site and the a bdominal wall dissected down to remove this cuff as well circumferentially around using electrocauter y and then I removed the entire catheter at this point, put on the back table and sent for pathologic examination. I then copiously irrigated the 2 incision sites as well as the tunneling tract between 2 areas. No hemostatic measures required. I then dried the area and placed interrupted sanjana ove r these 2 sites at this point with good hemostasis and closure of the all incisions. At this point, sterile dressing was placed over top. The patient tolerated the procedure well without feels complic ation. At this point, I then packed the peritoneal dialysis catheter with heparinized saline and a s terile dressing placed over top. The patient had abdominal binder placed as well. I then turned my attention to placement of a tunneled hemodialysis catheter. Patient remained prepped and draped. I then flipped the towels to allow for the second sterile field to be exposed. I used ultrasound and e xamined the right internal jugular vein after patient remain in steep Trendelenburg position. I then inserted the microintroducer needle in the right internal jugular vein under ultrasound guidance on the first attempt without complication. Dark red nonpulsatile blood returned. Micro wire was advanc ed at this point. I then made a july incision overlying the site and placed introducer sheath at thi s point. Fluoroscopic guidance confirmed the position of this micro wire in the SVC right atrial salena ction. At this point, the introducer sheath remained in place. I then removed the micro wire and pl aced a standard wire through this area and confirmed position with fluoroscopic guidance. I then sec ured the wire at this point and anesthetized the tract on the chest wall on the right infraclavicular position down to subcutaneous tissue using 0.25% Marcaine. I then made an excision over the chest a nd used the tunneling device to bring up a 19 cm curved HemoSplit catheter out of the insertion site. At this point, I then removed the tunneling device and put off the back table. At this point, I or iented the catheter properly and performed sequential dilatation while patient remained in steep [place] position. Sequential dilatation was performed. The standard wire was removed after the in troducer sheath was placed. I then placed the catheter into the confluence of the SVC at this point and removed the introducer sheath. No hemostatic measures required. At this point, I flushed and dr ew back dark red nonpulsatile blood quite easily through both trocar inserted through both ports. I should say and the area was flushed until clear with sterile saline. I then packed both with heparin super flushed 2 cc per port. At this point, I secured the catheter to the skin using 3 sutures, int errupted 2 nylon sutures and I closed the insertion site with a single interrupted 2-0 nylon suture. The area was copiously irrigated and sterile dressing was then placed over the top. X-ray confirmed the position of catheter, the SVC confluence at the end the procedure. The patient tolerated the pr ocedure without incident or complication. Transferred to PACU in good condition. All counts were co rrect at the end of the case. CASEY/MODL Voice ID: [id number] Report ID: [id number]
--- NOTE | 2023-07-16 14:47 | RAD REPORT ---
EXAM DESCRIPTION[facility] 1:58 pm CLINICAL HISTORY: Placement of HD Catheter COMPARISON: Fluoroscopy <1 Hour dated 07/16/2023 TECHNIQUE: Portable AP view of the chest. FINDINGS: Patient rotation limits evaluation, however the hemodialysis catheter tip appears to termi miller along the proximal SVC, similar in position to the final procedural fluoroscopic images. The lungs are clear apart from mild left basilar atelectasis. No pneumothorax or effusion. The cardi omediastinal contours are unremarkable. IMPRESSION: Right IJ hemodialysis catheter tip projects over the proximal SVC. Patient rotation some what limits evaluation. No acute cardiopulmonary process.
[2023-07-16] MEDS ORDERED: WATER FOR INJ,STERILE 10 ML IM PRN (14:51)
[2023-07-16] MEDS: ZIPRASIDONE MESYLA 20 MG/VIAL IM ONE (15:13)
[2023-07-17 03:36] LABS: Absolute Basophils 0.1 K/uL (0-0.5); Absolute Lymphocytes (CBC) 1.1 K/uL (0.7-4.9); Absolute Monocytes 1.2 K/uL (0.1-1.3); Absolute Neutrophil 7.6 K/uL (1.8-8.0); Basophils % 0.9 % (0-1.3); Eosinophils % 0.2 % (0-4.4); Hematocrit 23.9 % (39.6-49.0); Hemoglobin 7.6 g/dL (13.6-17.9); Lymphocytes % 11.1 % (15.3-44.8); MCH 29.3 pg (27.0-35.0); MCV 91.7 fL (80-100); MPV 6.9 fL (7.6-11.3); Monocytes % 11.9 % (3.3-12.3); Neutrophils % 75.9 % (41.7-73.7); Nucleated Red Blood Cells % 0.1 % (0-0); Platelets 377 thou/uL (152-406)
[2023-07-17 03:58] LABS: Anion Gap 11.3 mEq/L (5.0-15.0); Magnesium 3.4 mg/dL (1.6-2.4); Potassium 4.3 mEq/L (3.5-5.1)
[2023-07-17] MEDS: HYDROCODONE/APAP 5/325 MG TAB PO PRN (06:13)
--- NOTE | 2023-07-17 07:56 | P.DS ---
Admission Date: 07/15/23 Discharge Date: 07/17/23 Disposition: ROUTINE DISCHARGE Reason for Admission: Leaking peritoneal catheter Brief History of Present Illness: 63 years of age was recently discharged from [facility] was there for 2 weeks with abdominal pain and he left AMA apparently came back and he accidentally nicked his peritoneal catheter and started leaking considerably. 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 Presented to the emergency room with leaking per itoneal dialysis catheter. Was noted to have leaking peritoneal dialysis catheter. Was evaluated by surgery, peritoneal dialysis catheter removed. Condition improved with replacement of hemodialysis catheter. Removal of old peritoneal dialysis catheter. Patient tolerating diet, stable for discharge to home with follow-up appointment with primary care physician, follow-up with nephrology for resume dialysis. PROBLEM: Leaking peritoneal dialysis catheter End-stage renal disease on hemodialysis Hypertension Cyst on the left shoulder Follow-up with nephrology for outpatient hemodialysis. Continue home medicines as previously prescribed GOAL: Clear understanding of disease process INSTRUCTIONS: Physician Discharge Instructions: -Follow-up with PCP in 1 to 2 weeks -Please call Dr. Chavez at [phone] if any questions regarding hospital stay -Please call nursing station at [phone] if any nursing or medication questions -Return to the emergency room if symptoms worsen Diet: ADA, low sodium Activity: Fall precautions Vital Signs/Physical Exam: Temp Pulse Resp BP Pulse Ox 97.2 F 75 16 115/67 96 07/17/23 04:00 07/17/23 06:13 07/17/23 06:13 07/17/23 06:13 07/17/23 06:13 Laboratory Data at Discharge: WBC 10.00 thou/uL (4.3-10.9) 07/17/23 03:21 Hgb 7.6 g/dL (13.6-17.9) L 07/17/23 03:21 Hct 23.9 % (39.6-49.0) L 07/17/23 03:21 Plt Count 377 thou/uL (152-406) 07/17/23 03:21 PT 12.6 SECONDS (9.5-12.5) H 07/16/23 01:45 INR 1.15 07/16/23 01:45 Sodium 138 mEq/L (136-145) 07/17/23 03:21 Potassium 4.3 mEq/L (3.5-5.1) 07/17/23 03:21 BUN 85 mg/dL (7-18) H 07/17/23 03:21 Creatinine 9.71 mg/dL (0.70-1.30) H 07/17/23 03:21 Glucose 91 mg/dL (74-106) 07/17/23 03:21 Magnesium 3.4 mg/dL (1.6-2.4) H 07/17/23 03:21 Total Bilirubin 0.3 mg/dL (0.2-1.0) 07/15/23 20:05 AST 19 U/L (15-37) 07/15/23 20:05 ALT 16 U/L (16-61) 07/15/23 20:05 Alkaline Phosphatase 106 U/L (45-117) 07/15/23 20:05 Lipase 707 U/L (13-75) H 07/17/23 03:21 Home Medications: Fenofibrate [Tricor*] 145 mg PO BEDTIME 07/16/23 Gabapentin 100 mg PO DAILY 07/16/23 Losartan Potassium 100 mg PO DAILY 07/16/23 Pantoprazole [Protonix Tab*] 40 mg PO DAILY 07/16/23 Tamsulosin [Flomax*] 0.4 mg PO DAILY 07/16/23 Followup: NONE,NONE [Primary Care Provider] -
--- NOTE | 2023-07-17 08:11 | P.PN ---
Subjective Date of Service: 07/17/23 Chief Complaint: Leaking peritoneal catheter Patient is 63 years of age was recently discharged from [facility] was there for 2 weeks with abdominal pain and he left AMA apparently came back and he accidentally nicked his peritoneal catheter and started leaking considerably. He still has his chronic abdominal discomfort, elevated lipase, acute pancreatitis as needed analgesics added, n.p.o. 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 Seay for Tuesday 07/18 (notified on 07/17) Leakage of peritoneal dialysis catheter End-stage renal disease, peritoneal dialysis Current Visit: Yes Status: Acute Plan: admitted with a leaking peritoneal dialysis catheter apparently he damaged it. He has chronic abdominal pain was recently discharged from [facility] was treated with painkillers and has chronic renal failure mild hyponatremia sodium 135 otherwise vital signs are all stable Dr. Rubin has been consulted he is scheduled to have a replacement of his peritoneal dialysis catheter possibly an arterial catheter placed in the interim. 07/17 peritoneal catheter removed, replaced with hemodialysis catheter for hemodialysis (nephrology cleared patient for CT on 07-17, plan for hemodialysis on Monday 07/17 ) Nephrology consulted for hemodialysis HD planned for 07/18 Other bursal cyst, left shoulder Current Visit: Yes Status: Acute Plan: Patient has a cyst over his left shoulder nontender will have Dr. Rubin l evaluate 07/[address] Left Shoulder Hypertensive urgency As needed antihypertensive acute on chronic Diet n.p.o. Full code code DVT SCDs Disposition : resides at home Discharge Plan: Home - Code Status/Comfort Care Code Status: Full Code Critical Care: No Time Spent Managing PTS Care (In Minutes): 35
[2023-07-17] MEDS ORDERED: HYDROMORPHONE HCL 0.5 MG/0.5 ML INJ IV PRN (08:44)
[2023-07-17] MEDS: FENTANYL CITR 100 MCG/2 ML IV PRN (09:34)
--- NOTE | 2023-07-17 10:22 | RAD REPORT ---
EXAM DESCRIPTION: CT - Abdomen W Contrast - 07/17/2023 10:01 am CLINICAL HISTORY: Abdominal pain COMPARISON: none TECHNIQUE: Computed axial tomography from the diaphragm to the iliac crest was obtained. Oral contra st was given. 100 cc Isovue-[address] scans are performed using dose optimization technique as appropriate and may include automated exposure control or mA/KV adjustment according to patient size. FINDINGS: A peritoneal dialysis catheter enters the right lower abdomen. The tip is not included in the field o f view as it likely lies within the pelvis. Small amount of pneumoperitoneum. Small amount of ascites . Liver, spleen, pancreas and adrenals unremarkable. Small kidneys with cysts. The wall of the distal stomach thickened. Prominent atherosclerosis IMPRESSION: The tip of a peritoneal dialysis catheter lies within the pelvis and is not included in the field of view. Small amount of pneumoperitoneum most likely related to the catheter. Bowel perforation can also resu lt in this appearance and should be correlated clinically. Small amount ascites Apparent thickening of the distal gastric wall probably secondary to incomplete distention. Pathology such as inflammation can also result in this appearance
--- NOTE | 2023-07-17 10:30 | RAD REPORT ---
EXAM DESCRIPTION: CT - Shoulder Left Wo Con - 07/17/2023 10:02 am CLINICAL HISTORY: Shoulder mass COMPARISON: None. TECHNIQUE: Computed axial tomography left shoulder obtained with sagittal coronal reconstruction All CT scans are performed using dose optimization technique as appropriate and may include automated exposure control or mA/KV adjustment according to patient size. FINDINGS: No fracture or dislocation 5 centimeter calcified mass subcutaneous tissues posterior left shoulder Additional smaller calcifications surround left shoulder IMPRESSION: 5 centimeter calcified mass left shoulder with additional smaller calcifications. 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
[2023-07-17] MEDS: HYDROCODONE/APAP 10/325 TAB PO PRN (12:23)
[2023-07-17] MEDS: MIDODRINE HCL 5 MG TABLET PO SCH (14:05)
[2023-07-18 06:42] LABS: Absolute Lymphocytes (CBC) 0.7 K/uL (0.7-4.9); Absolute Monocytes 1.1 K/uL (0.1-1.3); Absolute Neutrophil 7.1 K/uL (1.8-8.0); Basophils % 0.4 % (0-1.3); Eosinophils % 0.4 % (0-4.4); Hematocrit 19.7 % (39.6-49.0); Hemoglobin 6.5 g/dL (13.6-17.9); Lymphocytes % 7.5 % (15.3-44.8); MCH 29.9 pg (27.0-35.0); MCHC 33.1 g/dL (32.0-36.0); MCV 90.2 fL (80-100); MPV 6.8 fL (7.6-11.3); Monocytes % 12.7 % (3.3-12.3); Nucleated Red Blood Cells % 0.1 % (0-0); Platelets 325 thou/uL (152-406); RBC Red Blood Cell Count 2.19 M/uL (4.33-5.43); Red Cell Distribution Width 17.3 % (12.1-15.2)
[2023-07-18 07:01] LABS: AST/SGOT 13 U/L (15-37); Albumin 1.3 g/dL (3.4-5.0); Albumin/Globulin Ratio 0.4 (1.1-1.8); Alkaline Phosphatase 62 U/L (45-117); Anion Gap 14.2 mEq/L (5.0-15.0); BUN Blood Urea Nitrogen 96 mg/dL (7-18); Bicarbonate 26 mEq/L (21-32); Bilirubin Total 0.3 mg/dL (0.2-1.0); Globulin 3.1 g/dL (2.3-3.5); Glomerular Filtration Rate 5 ml/min (=/>90); Glucose Level 83 mg/dL (74-106); Lipase 306 U/L (13-75); Potassium 4.2 mEq/L (3.5-5.1); Protein, Total 4.4 g/dL (6.4-8.2); Sodium Level 135 mEq/L (136-145)
[2023-07-18 07:02] LABS: ALT/SGPT < 10 U/L (16-61)
--- NOTE | 2023-07-18 08:03 | P.PN ---
Date of Service: 07/18/23 Date of Service: 07/17/23 Chief Complaint: Leaking peritoneal catheter Patient is 63 years of age was recently discharged from [facility] was there for 2 weeks with abdominal pain and he left AMA apparently came back and he accidentally nicked his peritoneal catheter and started leaking considerably. He still has his chronic abdominal discomfort, elevated lipase, acute pancreatitis as needed analgesics added, n.p.o. General: Alert, crying out with abdominal pain, pale HEENT: Atraumatic Neck: Supple Respiratory: Clear to auscultation bilaterally Cardiovascular: No edema, Regular rate/rhythm, Normal S1 S2 Gastrointestinal: Normal bowel sounds, lower abdominal tenderness, sanjana dry and intact, catheter to right lower abdomen with no discharge/drainage. 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 Seay for Tuesday 07/18 (notified on 07/17) Leakage of peritoneal dialysis catheter End-stage renal disease, peritoneal dialysis Current Visit: Yes Status: Acute Plan: 07/17 peritoneal catheter removed, replaced with hemodialysis catheter for hemodialysis Nephrology consulted for hemodialysis HD planned for 07/18 Other bursal cyst, left shoulder Current Visit: Yes Status: Acute Plan: Patient has a cyst over his left shoulder nontender will have Dr. Kapoor evaluate 07/[address] Left Shoulder - report pending Hypertensive urgency As needed antihypertensive acute on chronic Diet n.p.o. Full code code DVT SCDs Disposition : resides at home Discharge Plan: rehab - Code Status/Comfort Care Code Status: Full Code Critical Care: No Time Spent Managing PTS Care (In Minutes): 35
[2023-07-18] MEDS ORDERED: MANNITOL 25% 12.5 GM/50 ML VIAL IV PRN (09:29)
[2023-07-18] MEDS ORDERED: NA CHLORIDE 0.9% 1,000 ML IV PRN (09:29)
--- NOTE | 2023-07-18 10:28 | P.PN ---
Date of Service: 07/18/23 Vital Signs Temp Pulse Resp BP Pulse Ox 97.7 F 80 17 154/62 H 94 07/18/23 04:00 07/18/23 04:00 07/18/23 06:18 07/18/23 04:00 07/18/23 06:18 Medications Hydrocodone Bitart/Acetaminophen (Hydrocodone/Apap 10/325 Tab) 1 tab PO Q4H PRN PRN Reason: Pain scale 8-10 (Severe) Last Admin: 07/18/23 06:18 Dose: 1 tab Carvedilol (Carvedilol 25 Mg Tab) 25 mg PO BID 6AM 6PM [facility] Last Admin: 07/18/23 05:50 Dose: Not Given Epoetin Coy (Epoetin Coy 10,000 Unit/Ml Vial) 10,000 unit IV EVERY HD [facility] Fentanyl Citrate (Fentanyl Citr 100 Mcg/2 Ml) 50 mcg IV Q4H PRN PRN Reason: MODERATE TO SEVERE PAIN Last Admin: 07/18/23 04:06 Dose: 50 mcg Heparin Sodium (Porcine) (Heparin 1,000 Unit/Ml Vial) 6,000 unit IV EVERY HD PRN PRN Reason: AFTER EACH Hydralazine HCl (Hydralazine Hcl 20 Mg/Ml Vial) 10 mg IV Q4HP PRN PRN Reason: Goal to achieve SBP in comment Hydromorphone HCl (Hydromorphone Hcl 2 Mg/Ml Inj) 2 mg IV Q4H PRN PRN Reason: Pain scale 8-10 (Severe) Last Admin: 07/17/23 02:36 Dose: 2 mg Sodium Chloride (Ns 1000 Ml Ivbag) 1,000 mls @ 0 mls/hr IV .Q0M PRN; Protocol PRN Reason: Priming and BP support at HD Stop: 07/18/23 23:59 Albumin Human (Albumin 25%) 50 mls @ 100 mls/hr IV EVERY HD [facility] Losartan Potassium (Losartan Potassium 50 Mg Tablet) 100 mg PO DAILY [facility] Last Admin: 07/18/23 09:00 Dose: Not Given Mannitol (Mannitol 25% 12.5 Gm/50 Ml Vial) 12.5 gm IV EVERY HD PRN PRN Reason: Titrate to SBP (MUST DEFINE) Midodrine (Midodrine Hcl 5 Mg Tablet) 5 mg PO TID [facility] Last Admin: 07/18/23 09:37 Dose: 5 mg Ondansetron HCl (Ondansetron 4 Mg/2 Ml Vial) 4 mg IV Q4H PRN PRN Reason: NAUSEA / VOMITING Sterile Water (Water For Inj,Sterile 10 Ml) 1.2 ml IM UD PRN PRN Reason: DILUTION OF MED Assessment/ Plan: Nephrology Progress Note No Dyspnea No Chest Pain Mild confusion reports anorexia Itching No Acute Events Overnight Vital Signs, Medications, Blood Work, and Imaging reviewed in the chart NAD. NCAT. MMM. Neck Supple. Normal Respiratory Effort. RRR. Abd ND. No C/C. LE Edema none. Left hand deformity. No Rash. Awake. Normal Speech. Poor hearing. Assessment & Plan ESRD on PD -PD cath replaced but PD on hold due to recurrent peritonitis and pancreatitis -HD CVC placed -Seen and examined on HD Hyponatremia -HD as ordered HTN with CKD/ CHF -Continue Losartan Diastolic CHF, chronic -Daily weight Severe Protein Malnlutrition Hypoalbuminemia -Consider Nepro Anemia in CKD -Retacrit qHD -PRBC as ordered CKD MBD -Start Ergo Case reviewed with Dr. Chavez
[2023-07-18] MEDS: NA CHLORIDE 0.9% 250 ML ONE (11:20)
[2023-07-18 11:57] LABS: Hepatitis B Surface Ab - Quant 738.12 mIU/mL (<8.0); Hepatitis B surface AG Interp. Nonreactive (Nonreactive)
[2023-07-18 11:58] LABS: HBsAG Nonreactive Report Report
--- NOTE | 2023-07-18 14:32 | EKG ---
Test Date: 2023-07-17 Test Time: 04:33:08 Armature Winder Repairer: DONAVAN, MEASUREMENT RESULTS: Intervals: Rate: 68 WY: 148 QRSD: 98 QT: 480 QTc: 510 [place]: P: 65 WY: 148 QRS: -76 T: 86 INTERPRETIVE STATEMENTS: Normal sinus rhythm Possible Left atrial enlargement Left axis deviation Left ventricular hypertrophy with repolarization abnormality Cannot rule out Septal infarct, age undetermined Prolonged QT Abnormal ECG No previous ECG available for comparison Electronically Signed On 07-18-23 14:27:39 ADVERTISING SALES MANAGER by Collins Menchaca
[2023-07-18 17:05] LABS: Hematocrit 26.8 % (39.6-49.0); Hemoglobin 9.3 g/dL (13.6-17.9)
[2023-07-18] MEDS: ONDANSETRON 4 MG/2 ML VIAL IV PRN (19:41)
[2023-07-18] MEDS: DOCUSATE NA 100 MG CAP PO SCH (19:54)
[2023-07-18] MEDS: LACTOBACILLUS/ACIDOPHILUS TAB PO SCH (19:55)
[2023-07-18] MEDS: LORazepam 2 MG/ML VIAL IV PRN (21:45)
[2023-07-19 06:25] LABS: Absolute Basophils 0.1 K/uL (0-0.5); Absolute Eosinophils 0.1 K/uL (0-0.5); Absolute Lymphocytes (CBC) 0.5 K/uL (0.7-4.9); Absolute Neutrophil 5.6 K/uL (1.8-8.0); Basophils % 1.1 % (0-1.3); Hematocrit 25.9 % (39.6-49.0); Hemoglobin 8.7 g/dL (13.6-17.9); Lymphocytes % 6.8 % (15.3-44.8); MCH 29.2 pg (27.0-35.0); MCHC 33.5 g/dL (32.0-36.0); MCV 87.2 fL (80-100); MPV 6.8 fL (7.6-11.3); Monocytes % 13.8 % (3.3-12.3); Neutrophils % 77.3 % (41.7-73.7); Nucleated Red Blood Cells % 0.3 % (0-0); Platelets 298 thou/uL (152-406); RBC Red Blood Cell Count 2.97 M/uL (4.33-5.43); Red Cell Distribution Width 18.5 % (12.1-15.2)
[2023-07-19 06:45] LABS: ALT/SGPT < 10 U/L (16-61); AST/SGOT 16 U/L (15-37); Albumin 1.5 g/dL (3.4-5.0); Albumin/Globulin Ratio 0.5 (1.1-1.8); Alkaline Phosphatase 65 U/L (45-117); Anion Gap 11.2 mEq/L (5.0-15.0); BUN Blood Urea Nitrogen 46 mg/dL (7-18); Bicarbonate 25 mEq/L (21-32); Bilirubin Total 0.3 mg/dL (0.2-1.0); Globulin 3.3 g/dL (2.3-3.5); Glomerular Filtration Rate 8 ml/min (=/>90); Glucose Level 75 mg/dL (74-106); Lipase 200 U/L (13-75); Phosphorus 4.9 mg/dL (2.5-4.9); Potassium 4.2 mEq/L (3.5-5.1); Protein, Total 4.8 g/dL (6.4-8.2); Sodium Level 137 mEq/L (136-145)
[2023-07-19] MEDS: DRISDOL (VITAMIN D=ERGOCALCIFEROL) 50000 UNIT CAP PO SCH (08:37)
[2023-07-19] MEDS: COENZYME Q10- 200 MG CAP PO SCH (08:37)
[2023-07-19 14:31] LABS: Body Fluid WBC 129 /mm^3
--- NOTE | 2023-07-19 15:11 | P.PN ---
Date of Service: 07/19/23 Date of Service: 07/19/23 Chief Complaint: Leaking peritoneal catheter Patient is 63 years of age was recently discharged from [facility] was there for 2 weeks with abdominal pain and he left AMA apparently came back and he accidentally nicked his peritoneal catheter and started leaking considerably. He still has his chronic abdominal discomfort, elevated lipase, acute pancreatitis as needed analgesics added, n.p.o. General: Alert, with abdominal pain less intense than previous 2 days, pallor HEENT: Atraumatic Neck: Supple Respiratory: Clear to auscultation bilaterally Cardiovascular: No edema, Regular rate/rhythm, Normal S1 S2 Gastrointestinal: Normal bowel sounds, lower abdominal tenderness, sanjana dry and intact, catheter to right lower abdomen with no discharge/drainage. 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 Seay for Tuesday 07/18 (notified on 07/17) Leakage of peritoneal dialysis catheter End-stage renal disease, peritoneal dialysis Current Visit: Yes Status: Acute 07/17 damaged peritoneal catheter removed, replaced with new peritoneal catheter per Dr. Kapoor. hemodialysis catheter used yesterday and today for dialysis Nephrology consulted. During dialysis, Dr. Kapoor aspirated some peritoneal fluid from PD catheter for analysis, Pt had low grade fever to 100.4 overnight. Other bursal cyst, left shoulder Current Visit: Yes Status: Acute Plan: Patient has a cyst over his left shoulder nontender will have Dr. Kapoor evaluate outpatient (calcinosis) Hypertensive urgency As needed antihypertensive acute on chronic Diet advance Full code code DVT SCDs Disposition : resides at home Discharge Plan: rehab - Code Status/Comfort Care Code Status: Full Code Critical Care: No
--- NOTE | 2023-07-19 15:50 | EKG ---
Test Date: 2023-07-15 Test Time: 21:50:08 Black Leather Buffer: JAC MEASUREMENT RESULTS: Intervals: Rate: 68 ND: 170 QRSD: 96 QT: 468 QTc: 497 [place]: P: 66 ND: 170 QRS: -26 T: 72 INTERPRETIVE STATEMENTS: Normal sinus rhythm Possible Left atrial enlargement Anterior infarct, age undetermined Abnormal ECG No previous ECG available for comparison Electronically Signed On 07-19-23 15:47:03 BOAT DIESEL MOTOR MECHANIC by Collins Menchaca
[2023-07-19 17:15] LABS: Appearance TURBID (CLEAR); Body Fluid Lymphocytes 9 %; Body Fluid Source PERITONEAL; Color of fluid Red (COLORLESS); Fluid Total Cells Count 100
[2023-07-19] MEDS: RISPERIDONE 0.25 MG TABLET PO ONE (20:14)
[2023-07-19] MEDS: ACETAMINOPHEN 325 MG TABLET PO PRN (20:14)
[2023-07-19] MEDS: FENTANYL CITR 100 MCG/2 ML IV PRN (20:15)
[2023-07-19] MEDS: ENSURE HIGH PROTEIN 237 ML CAN PO SCH (20:15)
--- NOTE | 2023-07-19 20:35 | P.PN ---
Date of Service: 07/19/23 Vital Signs Temp Pulse Resp BP Pulse Ox 100.1 F 68 18 118/77 98 07/19/23 20:14 07/19/23 18:28 07/19/23 16:00 07/19/23 18:28 07/19/23 08:00 Medications Acetaminophen (Acetaminophen 325 Mg Tablet) 650 mg PO Q6H PRN PRN Reason: fever Last Admin: 07/19/23 20:14 Dose: 650 mg Hydrocodone Bitart/Acetaminophen (Hydrocodone/Apap 10/325 Tab) 1 tab PO Q4H PRN PRN Reason: Pain scale 8-10 (Severe) Last Admin: 07/19/23 00:56 Dose: 1 tab Carvedilol (Carvedilol 25 Mg Tab) 25 mg PO BID 6AM 6PM [facility] Last Admin: 07/19/23 18:28 Dose: 25 mg Coenzyme Q10 (Coenzyme Q10- 200 Mg Cap) 200 mg PO DAILY [facility] Last Admin: 07/19/23 08:37 Dose: 200 mg Docusate Sodium (Docusate Na 100 Mg Cap) 100 mg PO BID [facility] Last Admin: 07/19/23 20:14 Dose: 100 mg Epoetin Coy (Epoetin Coy 10,000 Unit/Ml Vial) 10,000 unit IV EVERY HD [facility] Ergocalciferol (Drisdol (Vitamin D=Ergocalciferol) 76504 Unit Cap) 50,000 unit PO Q48H [facility] Stop: 07/21/23 09:01 Last Admin: 07/19/23 08:37 Dose: 50,000 unit Fentanyl Citrate (Fentanyl Citr 100 Mcg/2 Ml) 25 mcg IV Q4H PRN PRN Reason: MODERATE TO SEVERE PAIN Last Admin: 07/19/23 20:15 Dose: 25 mcg Heparin Sodium (Porcine) (Heparin 1,000 Unit/Ml Vial) 6,000 unit IV EVERY HD PRN PRN Reason: AFTER EACH Last Admin: 07/19/23 15:15 Dose: 6,000 unit Hydralazine HCl (Hydralazine Hcl 20 Mg/Ml Vial) 10 mg IV Q4HP PRN PRN Reason: Goal to achieve SBP in comment Albumin Human (Albumin 25%) 50 mls @ 100 mls/hr IV EVERY HD [facility] Lactobacillus Acidoph/Bulgaricus (Lactobacillus/Acidophilus Tab) 1 tab PO BID [facility] Last Admin: 07/19/23 20:14 Dose: 1 tab Lorazepam (Lorazepam 2 Mg/Ml Vial) 0.5 mg IV Q4H PRN PRN Reason: ANXIETY Last Admin: 07/18/23 21:45 Dose: 0.5 mg Losartan Potassium (Losartan Potassium 50 Mg Tablet) 100 mg PO DAILY [facility] Last Admin: 07/19/23 08:36 Dose: 100 mg Mannitol (Mannitol 25% 12.5 Gm/50 Ml Vial) 12.5 gm IV EVERY HD PRN PRN Reason: Titrate to SBP (MUST DEFINE) Midodrine (Midodrine Hcl 5 Mg Tablet) 5 mg PO TID [facility] Last Admin: 07/19/23 20:15 Dose: 5 mg Nutritional Formula (Ensure High Protein 237 Ml Can) 237 ml PO BID [facility] Last Admin: 07/19/23 20:15 Dose: Not Given Ondansetron HCl (Ondansetron 4 Mg/2 Ml Vial) 4 mg IV Q4H PRN PRN Reason: NAUSEA / VOMITING Last Admin: 07/18/23 19:41 Dose: 4 mg Risperidone (Risperidone 0.25 Mg Tablet) 0.25 mg PO BEDTIME [facility] Sterile Water (Water For Inj,Sterile 10 Ml) 1.2 ml IM UD PRN PRN Reason: DILUTION OF MED Assessment/ Plan: Nephrology Progress Note No Dyspnea No Chest Pain Episodic behavioral issues No Acute Events Overnight Vital Signs, Medications, Blood Work, and Imaging reviewed in the chart NAD. NCAT. MMM. Neck Supple. Normal Respiratory Effort. RRR. Abd ND. No C/C. LE Edema none. Left hand deformity. No Rash. Awake. Normal Speech. Poor hearing. Assessment & Plan ESRD on PD -PD cath replaced but PD on hold due to recurrent peritonitis and pancreatitis -HD CVC placed -HD TIW Hyponatremia -HD TIW HTN with CKD/ CHF -Continue Losartan Diastolic CHF, chronic -Daily weight Severe Protein Malnlutrition Hypoalbuminemia -Consider Nepro Anemia in CKD -Retacrit qHD -PRBC as ordered CKD MBD -Continue Ergo Case reviewed with Dr. Chavez
[2023-07-20 04:45] LABS: Absolute Basophils 0.1 K/uL (0-0.5); Absolute Eosinophils 0.1 K/uL (0-0.5); Absolute Lymphocytes (CBC) 0.5 K/uL (0.7-4.9); Absolute Monocytes 0.8 K/uL (0.1-1.3); Absolute Neutrophil 5.2 K/uL (1.8-8.0); Basophils % 1.1 % (0-1.3); Eosinophils % 1.2 % (0-4.4); Hematocrit 25.1 % (39.6-49.0); Hemoglobin 8.4 g/dL (13.6-17.9); Lymphocytes % 7.7 % (15.3-44.8); MCH 29.3 pg (27.0-35.0); MCHC 33.3 g/dL (32.0-36.0); MCV 88.1 fL (80-100); MPV 6.6 fL (7.6-11.3); Monocytes % 12.1 % (3.3-12.3); Neutrophils % 77.9 % (41.7-73.7); Nucleated Red Blood Cells % 0.5 % (0-0); Platelets 308 thou/uL (152-406); RBC Red Blood Cell Count 2.85 M/uL (4.33-5.43); Red Cell Distribution Width 18.5 % (12.1-15.2)
[2023-07-20 04:55] LABS: AST/SGOT 14 U/L (15-37); Albumin 1.4 g/dL (3.4-5.0); Albumin/Globulin Ratio 0.4 (1.1-1.8); Alkaline Phosphatase 65 U/L (45-117); Anion Gap 10.1 mEq/L (5.0-15.0); BUN Blood Urea Nitrogen 26 mg/dL (7-18); Bicarbonate 24 mEq/L (21-32); Bilirubin Total 0.2 mg/dL (0.2-1.0); Globulin 3.3 g/dL (2.3-3.5); Glomerular Filtration Rate 12 ml/min (=/>90); Glucose Level 72 mg/dL (74-106); Lipase 168 U/L (13-75); Potassium 4.1 mEq/L (3.5-5.1); Protein, Total 4.7 g/dL (6.4-8.2); Sodium Level 137 mEq/L (136-145)
[2023-07-20 05:06] LABS: ALT/SGPT < 10 U/L (16-61)
--- NOTE | 2023-07-20 07:32 | P.PN ---
Subjective Date of Service: 07/20/23 Chief Complaint: Leaking peritoneal catheter Subjective: Other (labs and abd pain improving, pt has been aggressive and combative with Spouse and staff. He had to have a sitter overnight. Sitter states he had been agitated but did sleep for 4-5 hours) Review of Systems 10-point ROS is otherwise unremarkable General: Malaise, As per HPI Eyes: Unremarkable ENT: Unremarkable Respiratory: Unremarkable Cardiovascular: Unremarkable Gastrointestinal: Abdominal Pain (moderate to minimal) Genitourinary: Unremarkable Musculoskeletal: Unremarkable Integumentary: Unremarkable Neurological: Confusion, Other (aggressive outbursts) Lymphatics: Unremarkable Physical Examination - Vital Signs Temperature: 99.3 F Blood Pressure: 149/76 Pulse: 80 Respirations: 18 Pulse Ox (%): 96 - Physical Exam General: In no apparent distress HEENT: Atraumatic, Normocephalic, Sclerae nonicteric Neck: Supple Respiratory: Normal air movement Cardiovascular: Other (holosystolic), Systolic murmur Capillary refill: <2 Seconds Gastrointestinal: Normal bowel sounds, Soft and benign, Other (wearing abd binder) Musculoskeletal: Other (left hand with fingers amputated) Integumentary: No rashes Neurological: Normal speech, Other ([employer]) Lymphatics: No axilla or inguinal lymphadenopathy Urinary: Barrios catheter External genitalia: Deferred Rectal: Deferred Assessment And Plan - Plan Assessment And Plan - Problems (Diagnosis) Acute pancreatitis Diet advance as tolerated Lipase 68, 707, trending down to 200 this am, continued decline in lipase abd pain improving but patient still does not want to eat much 07/[address] for abdominal pain - pending report 07/18 Leakage of peritoneal dialysis catheter End-stage renal disease, peritoneal dialysis Current Visit: Yes Status: Acute 07/17 damaged peritoneal catheter removed, replaced with new peritoneal catheter per Dr. Kapoor. hemodialysis catheter used 07/18 and 07/19, Labwork improved, BUN and creatinine trending down Nephrology seeing patient peritoneal fluid from PD catheter sent for analysis, so far analysis benign, no fever overnight, one dose Zosyn 3.375gm given post aspiration. Will follow Hypertensive urgency As needed antihypertensive acute on chronic psychosis: Code Tomas activated x 2 episodes last afternoon. Sitter at bedside. Risperdol consider [facility] Diet advance Full code code DVT SCDs Disposition : resides at home Discharge Plan: [facility] - Code Status/Comfort Care Code Status: Full Code Critical Care: No Discharge Plan: Other (Geriatric psych with ability to perform dialysis) Plan to discharge in: 24 Hours
--- NOTE | 2023-07-20 11:30 | RAD REPORT ---
EXAM DESCRIPTION: RAD - Chest Single View - 07/20/2023 11:24 am CLINICAL HISTORY: pneumonia COMPARISON: Chest Single View dated 07/16/2023 FINDINGS: Lines: Right IJ approach dialysis catheter with distal tip overlying the SVC. Lungs: No evidence of edema or pneumonia. Pleural: No significant pleural effusions or pneumothorax. Cardiac: The heart size is within normal limits. Mediastinum: Within normal limits. Bones: No acute fractures. Other: None IMPRESSION: No acute cardiopulmonary disease.
[2023-07-20] MEDS: METOCLOPRAMIDE 10 MG/2mL INJ IV SCH (14:56)
[2023-07-20] MEDS: RISPERIDONE 0.25 MG TABLET PO SCH (20:10)
--- NOTE | 2023-07-20 21:03 | P.PN ---
Date of Service: 07/20/23 Vital Signs Temp Pulse Resp BP Pulse Ox 97.8 F 70 20 145/73 H 98 07/20/23 20:22 07/20/23 20:22 07/20/23 20:22 07/20/23 20:22 07/20/23 20:22 Medications Acetaminophen (Acetaminophen 325 Mg Tablet) 650 mg PO Q6H PRN PRN Reason: fever Last Admin: 07/20/23 14:55 Dose: 650 mg Hydrocodone Bitart/Acetaminophen (Hydrocodone/Apap 10/325 Tab) 1 tab PO Q4H PRN PRN Reason: Pain scale 8-10 (Severe) Last Admin: 07/20/23 18:24 Dose: 1 tab Calcitriol (Calcitrol 0.25 Mcg Cap) 0.5 mcg PO DAILY [facility] Carvedilol (Carvedilol 25 Mg Tab) 25 mg PO BID 6AM 6PM [facility] Last Admin: 07/20/23 17:00 Dose: 25 mg Coenzyme Q10 (Coenzyme Q10- 200 Mg Cap) 200 mg PO DAILY [facility] Last Admin: 07/20/23 08:48 Dose: Not Given Docusate Sodium (Docusate Na 100 Mg Cap) 100 mg PO BID [facility] Last Admin: 07/20/23 20:10 Dose: 100 mg Epoetin Coy (Epoetin Coy 10,000 Unit/Ml Vial) 10,000 unit IV EVERY HD [facility] Ergocalciferol (Drisdol (Vitamin D=Ergocalciferol) 11517 Unit Cap) 50,000 unit PO Q48H [facility] Stop: 07/21/23 09:01 Last Admin: 07/19/23 08:37 Dose: 50,000 unit Fentanyl Citrate (Fentanyl Citr 100 Mcg/2 Ml) 25 mcg IV Q4H PRN PRN Reason: MODERATE TO SEVERE PAIN Last Admin: 07/19/23 20:15 Dose: 25 mcg Heparin Sodium (Porcine) (Heparin 1,000 Unit/Ml Vial) 6,000 unit IV EVERY HD PRN PRN Reason: AFTER EACH Last Admin: 07/19/23 15:15 Dose: 6,000 unit Hydralazine HCl (Hydralazine Hcl 20 Mg/Ml Vial) 10 mg IV Q4HP PRN PRN Reason: Goal to achieve SBP in comment Albumin Human (Albumin 25%) 50 mls @ 100 mls/hr IV EVERY HD [facility] Albumin Human (Albumin 25%) 100 mls @ 100 mls/hr IV 1X ONE Stop: 07/20/23 21:59 Lactobacillus Acidoph/Bulgaricus (Lactobacillus/Acidophilus Tab) 1 tab PO BID [facility] Last Admin: 07/20/23 20:10 Dose: 1 tab Lorazepam (Lorazepam 2 Mg/Ml Vial) 0.5 mg IV Q4H PRN PRN Reason: ANXIETY Last Admin: 07/20/23 20:10 Dose: 0.5 mg Losartan Potassium (Losartan Potassium 50 Mg Tablet) 100 mg PO DAILY [facility] Last Admin: 07/20/23 08:42 Dose: 100 mg Mannitol (Mannitol 25% 12.5 Gm/50 Ml Vial) 12.5 gm IV EVERY HD PRN PRN Reason: Titrate to SBP (MUST DEFINE) Metoclopramide HCl (Metoclopramide 10 Mg/2ml Inj) 5 mg IV BIDAC [facility] Stop: 07/22/23 16:31 Last Admin: 07/20/23 14:56 Dose: 5 mg Midodrine (Midodrine Hcl 5 Mg Tablet) 5 mg PO TID [facility] Last Admin: 07/20/23 20:18 Dose: Not Given Nutritional Formula (Ensure High Protein 237 Ml Can) 237 ml PO BID [facility] Last Admin: 07/20/23 20:10 Dose: 237 ml Ondansetron HCl (Ondansetron 4 Mg/2 Ml Vial) 4 mg IV Q4H PRN PRN Reason: NAUSEA / VOMITING Last Admin: 07/20/23 09:23 Dose: 4 mg Risperidone (Risperidone 0.25 Mg Tablet) 0.25 mg PO BEDTIME [facility] Last Admin: 07/20/23 20:10 Dose: 0.25 mg Sterile Water (Water For Inj,Sterile 10 Ml) 1.2 ml IM UD PRN PRN Reason: DILUTION OF MED Assessment/ Plan: Nephrology Progress Note No Dyspnea No Chest Pain Episodic behavioral issues No Acute Events Overnight Vital Signs, Medications, Blood Work, and Imaging reviewed in the chart NAD. NCAT. MMM. Neck Supple. Normal Respiratory Effort. RRR. Abd ND. No C/C. LE Edema none. Left hand deformity. No Rash. Awake. Normal Speech. Poor hearing. Assessment & Plan ESRD on PD -PD cath replaced but PD on hold due to recurrent peritonitis and pancreatitis -HD CVC placed -HD TIW Hyponatremia -HD TIW HTN with CKD/ CHF -Continue Losartan Diastolic CHF, chronic -Daily weight Severe Protein Malnutrition Hypoalbuminemia -Protein supplementation as ordered -IV Albumin as ordered Anemia in CKD -Retacrit qHD -PRBC as ordered CKD MBD -Continue Ergo Case reviewed with hospitalist team
[2023-07-20] MEDS: ALBUMIN HUMAN 25% 100 ML IV ONE (22:12)
[2023-07-20] MEDS ORDERED: PIPER TAZO 3.375 GM in NA CHLORIDE 0.9% 100 ML IV ONE (22:23)
[2023-07-20] MEDS ORDERED: LORazepam 2 MG/ML VIAL ONE (23:44)
[2023-07-21 04:16] LABS: Absolute Basophils 0.1 K/uL (0-0.5); Absolute Eosinophils 0.3 K/uL (0-0.5); Absolute Lymphocytes (CBC) 0.5 K/uL (0.7-4.9); Absolute Monocytes 0.7 K/uL (0.1-1.3); Absolute Neutrophil 4.3 K/uL (1.8-8.0); Basophils % 1.2 % (0-1.3); Eosinophils % 4.5 % (0-4.4); Hematocrit 25.9 % (39.6-49.0); Hemoglobin 8.6 g/dL (13.6-17.9); Lymphocytes % 8.9 % (15.3-44.8); MCH 29.5 pg (27.0-35.0); MCHC 33.3 g/dL (32.0-36.0); MCV 88.4 fL (80-100); MPV 6.5 fL (7.6-11.3); Monocytes % 11.8 % (3.3-12.3); Neutrophils % 73.6 % (41.7-73.7); Nucleated Red Blood Cells % 0.2 % (0-0); Platelets 320 thou/uL (152-406); RBC Red Blood Cell Count 2.93 M/uL (4.33-5.43); Red Cell Distribution Width 18.4 % (12.1-15.2)
[2023-07-21 04:47] LABS: ALT/SGPT < 10 U/L (16-61); AST/SGOT 14 U/L (15-37); Albumin 1.6 g/dL (3.4-5.0); Albumin/Globulin Ratio 0.5 (1.1-1.8); Alkaline Phosphatase 58 U/L (45-117); Anion Gap 10.3 mEq/L (5.0-15.0); BUN Blood Urea Nitrogen 38 mg/dL (7-18); Bicarbonate 24 mEq/L (21-32); Bilirubin Total 0.3 mg/dL (0.2-1.0); Globulin 3.2 g/dL (2.3-3.5); Glucose Level 71 mg/dL (74-106); Potassium 4.3 mEq/L (3.5-5.1); Protein, Total 4.8 g/dL (6.4-8.2); Sodium Level 136 mEq/L (136-145)
[2023-07-21 04:48] LABS: Glomerular Filtration Rate 9 ml/min (=/>90)
[2023-07-21] MEDS ORDERED: LORazepam 2 MG/ML VIAL ONE (05:39)
[2023-07-21] MEDS: CALCITROL 0.25 MCG CAP PO SCH (08:51)
[2023-07-21] MEDS: PIPER TAZO 3.375 GM in NA CHLORIDE 0.9% 100 ML IV SCH (08:52)
--- NOTE | 2023-07-21 09:18 | P.PN ---
Date of Service: 07/21/23 Date of Service: 07/21/23 Chief Complaint: Leaking peritoneal catheter Patient is 63 years of age was recently discharged from [facility] was there for 2 weeks with abdominal pain and he left AMA apparently came back and he accidentally nicked his peritoneal catheter and started leaking considerably. He still has his chronic abdominal discomfort, elevated lipase, acute pancreatitis as needed analgesics added, n.p.o. General: Alert, with abdominal pain less intense than previous 2 days, pallor, pain better this morning, abd binder intact, pt did spike a fever to 100.4 this am, will continue Zosyn q 12 awaiting cultures HEENT: Atraumatic Neck: Supple Respiratory: Clear to auscultation bilaterally Cardiovascular: No edema, Regular rate/rhythm, Normal S1 S2 Gastrointestinal: Normal bowel sounds, lower abdominal tenderness, sanjana dry and intact, catheter to right lower abdomen with no discharge/drainage. 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 Kapoor. hemodialysis catheter used 07/19 and 07/20. Labs improved Nephrology consulted. peritoneal fluid from PD catheter sent for analysis culture with no growth, blood cultures pending, Chest x-ray yesterday without concerning findings. Pt had low grade fever to 100.4 again this am. Zosyn reordered Discussed case with Dr. Marie and Dr. Chavez. Consideration of removal of PD cath to remove one possible source of fever/infection Other bursal cyst, left shoulder Current Visit: Yes Status: Acute Plan: Patient has a cyst over his left shoulder nontender will have Dr. Kapoor evaluate outpatient (calcinosis) Hypertensive urgency As needed antihypertensive acute on chronic Situational confusion/outburst: Risperdol initiated and pt is improved today Diet advance Full code code DVT SCDs Disposition : resides at home Discharge Plan: rehab - Code Status/Comfort Care Code Status: Full Code Critical Care: No
[2023-07-21] MEDS ORDERED: SODIUM CHLORIDE 0.9% 10ML INJ IV PRN (09:22)
[2023-07-21] MEDS: EPOETIN ALFA 10,000 UNIT/ML VIAL IV SCH (14:44)
[2023-07-21] MEDS: ALBUMIN HUMAN 25% 50 ML IV SCH (15:37)
[2023-07-21] MEDS: HYDRALAZINE HCL 20 MG/ML VIAL IV PRN (18:25)
--- NOTE | 2023-07-21 21:33 | P.PN ---
Date of Service: 07/21/23 Vital Signs Temp Pulse Resp BP Pulse Ox 100.8 F 91 H 20 114/65 98 07/21/23 19:18 07/21/23 19:04 07/21/23 21:02 07/21/23 19:04 07/21/23 21:02 Medications Acetaminophen (Acetaminophen 325 Mg Tablet) 650 mg PO Q6H PRN PRN Reason: fever Last Admin: 07/21/23 05:59 Dose: 650 mg Hydrocodone Bitart/Acetaminophen (Hydrocodone/Apap 10/325 Tab) 1 tab PO Q4H PRN PRN Reason: Pain scale 8-10 (Severe) Last Admin: 07/21/23 18:12 Dose: 1 tab Calcitriol (Calcitrol 0.25 Mcg Cap) 0.5 mcg PO DAILY [facility] Last Admin: 07/21/23 08:51 Dose: 0.5 mcg Carvedilol (Carvedilol 25 Mg Tab) 25 mg PO BID 6AM 6PM [facility] Last Admin: 07/21/23 18:12 Dose: 25 mg Coenzyme Q10 (Coenzyme Q10- 200 Mg Cap) 200 mg PO DAILY [facility] Last Admin: 07/21/23 08:51 Dose: 200 mg Docusate Sodium (Docusate Na 100 Mg Cap) 100 mg PO BID [facility] Last Admin: 07/21/23 19:31 Dose: 100 mg Epoetin Coy (Epoetin Coy 10,000 Unit/Ml Vial) 10,000 unit IV EVERY HD [facility] Last Admin: 07/21/23 14:44 Dose: 10,000 unit Fentanyl Citrate (Fentanyl Citr 100 Mcg/2 Ml) 25 mcg IV Q4H PRN PRN Reason: MODERATE TO SEVERE PAIN Last Admin: 07/21/23 21:02 Dose: 25 mcg Heparin Sodium (Porcine) (Heparin 1,000 Unit/Ml Vial) 6,000 unit IV EVERY HD PRN PRN Reason: AFTER EACH Last Admin: 07/21/23 18:18 Dose: 6,000 unit Hydralazine HCl (Hydralazine Hcl 20 Mg/Ml Vial) 10 mg IV Q4HP PRN PRN Reason: Goal to achieve SBP in comment Last Admin: 07/21/23 18:25 Dose: 10 mg Albumin Human (Albumin 25%) 50 mls @ 100 mls/hr IV EVERY HD [facility] Last Admin: 07/21/23 15:37 Dose: 50 mls Piperacillin Sod/Tazobactam (Sod 3.375 gm/ Sodium Chloride) 100 mls @ 25 mls/hr IV Q12HR [facility]; Protocol Last Admin: 07/21/23 19:32 Dose: 100 mls Lactobacillus Acidoph/Bulgaricus (Lactobacillus/Acidophilus Tab) 1 tab PO BID [facility] Last Admin: 07/21/23 20:56 Dose: 1 tab Lorazepam (Lorazepam 2 Mg/Ml Vial) 0.5 mg IV Q4H PRN PRN Reason: ANXIETY Last Admin: 07/21/23 19:31 Dose: 0.5 mg Losartan Potassium (Losartan Potassium 50 Mg Tablet) 100 mg PO DAILY [facility] Last Admin: 07/21/23 08:54 Dose: Not Given Mannitol (Mannitol 25% 12.5 Gm/50 Ml Vial) 12.5 gm IV EVERY HD PRN PRN Reason: Titrate to SBP (MUST DEFINE) Metoclopramide HCl (Metoclopramide 10 Mg/2ml Inj) 5 mg IV BIDAC [facility] Stop: 07/22/23 16:31 Last Admin: 07/21/23 16:30 Dose: Not Given Midodrine (Midodrine Hcl 5 Mg Tablet) 5 mg PO TID [facility] Last Admin: 07/21/23 20:56 Dose: Not Given Nutritional Formula (Ensure High Protein 237 Ml Can) 237 ml PO BID [facility] Last Admin: 07/21/23 19:31 Dose: 237 ml Ondansetron HCl (Ondansetron 4 Mg/2 Ml Vial) 4 mg IV Q4H PRN PRN Reason: NAUSEA / VOMITING Last Admin: 07/21/23 18:36 Dose: 4 mg Pantoprazole Sodium (Pantoprazole 40 Mg Inj) 40 mg IVP DAILY [facility]; Protocol Risperidone (Risperidone 0.25 Mg Tablet) 0.25 mg PO BEDTIME [facility] Last Admin: 07/21/23 19:31 Dose: 0.25 mg Sodium Chloride (Sodium Chloride 0.9% 10ml Inj) 10 ml IV UD PRN PRN Reason: Diluant Assessment/ Plan: Nephrology Progress Note No Dyspnea No Chest Pain Waxing and waning mental status No Acute Events Overnight Case reviewed with his Vital Signs, Medications, Blood Work, and Imaging reviewed in the chart NAD. NCAT. MMM. Neck Supple. Normal Respiratory Effort. RRR. Abd ND. No C/C. LE Edema none. Left hand deformity. No Rash. Awake. Normal Speech. Poor hearing. 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 Kapoor
[2023-07-21] MEDS: LORazepam 2 MG/ML VIAL IV ONE (22:47)
[2023-07-22 07:37] LABS: Absolute Basophils 0.1 K/uL (0-0.5); Absolute Eosinophils 0.2 K/uL (0-0.5); Absolute Lymphocytes (CBC) 0.8 K/uL (0.7-4.9); Absolute Monocytes 0.9 K/uL (0.1-1.3); Absolute Neutrophil 3.4 K/uL (1.8-8.0); Basophils % 1.3 % (0-1.3); Eosinophils % 4.1 % (0-4.4); Hematocrit 27.2 % (39.6-49.0); Hemoglobin 9.1 g/dL (13.6-17.9); Lymphocytes % 14.8 % (15.3-44.8); MCHC 33.4 g/dL (32.0-36.0); MPV 6.6 fL (7.6-11.3); Monocytes % 17.1 % (3.3-12.3); Neutrophils % 62.7 % (41.7-73.7); Nucleated Red Blood Cells % 0.4 % (0-0); Platelets 342 thou/uL (152-406); RBC Red Blood Cell Count 3.13 M/uL (4.33-5.43); Red Cell Distribution Width 18.3 % (12.1-15.2)
[2023-07-22 07:47] LABS: ALT/SGPT < 10 U/L (16-61); AST/SGOT 18 U/L (15-37); Albumin 1.8 g/dL (3.4-5.0); Albumin/Globulin Ratio 0.5 (1.1-1.8); Alkaline Phosphatase 69 U/L (45-117); Anion Gap 10.1 mEq/L (5.0-15.0); BUN Blood Urea Nitrogen 21 mg/dL (7-18); Bicarbonate 26 mEq/L (21-32); Bilirubin Total 0.4 mg/dL (0.2-1.0); Globulin 3.3 g/dL (2.3-3.5); Glomerular Filtration Rate 15 ml/min (=/>90); Glucose Level 70 mg/dL (74-106); Magnesium 2.2 mg/dL (1.6-2.4); Potassium 4.1 mEq/L (3.5-5.1); Protein, Total 5.1 g/dL (6.4-8.2); Sodium Level 137 mEq/L (136-145)
--- NOTE | 2023-07-22 08:25 | P.PN ---
Date of Service: 07/22/23 Date of Service: 07/21/23 Chief Complaint: Leaking peritoneal catheter Patient is 63 years of age was recently discharged from [facility] was there for 2 weeks with abdominal pain and he left AMA apparently came back and he accidentally nicked his peritoneal catheter and started leaking considerably. He still has his chronic abdominal discomfort, elevated lipase, acute pancreatitis as needed analgesics added, n.p.o. Acting out overnight, being abusive to staff. They tried to reorient him, sitter at bedside. He swung his fist at her. They called his who stated she would come up. On my arrival this am, pt was beligerent, threatening staff. He was calm for me, repositioned in bed, fentanyl given IV per RN. Pt resting with eyes closed after 5-10min. Sitter still at bedside but not in view of Mr. Lafleur. Dr. Chavez has discussed this behavior with Dr. Adam (PCP) and Mrs. Lafleur. They feel he has given up on living and acts out of frustration. Conversations about hospice ongoing. General: Alert, with abdominal pain less intense than previous 2 days, pallor, pain better this morning, abd binder intact, pt did spike a fever to 100.4 this am, will continue Zosyn q 12 awaiting cultures HEENT: Atraumatic Neck: Supple Respiratory: Clear to auscultation bilaterally Cardiovascular: No edema, Regular rate/rhythm, Normal S1 S2 Gastrointestinal: Normal bowel sounds, lower abdominal tenderness, sanjana dry and intact, catheter to right lower abdomen with no discharge/drainage. 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 Kapoor. hemodialysis catheter used 07/19 and 07/20. Labs improved Nephrology consulted. peritoneal fluid from PD catheter sent for analysis culture with no growth, blood cultures pending, Chest x-ray yesterday without concerning findings. Pt had low grade fever to 100.4 again this am. Zosyn reordered. Cath for urine did not produce a sample for culture. Discussed case with Dr. Marie and Dr. Chavez. Consideration of removal of PD cath to remove one possible source of fever/infection. Dr. Kapoor was agreeable to dc PD cath and pt was NPO overnight; however, discussion continues re: hospice vs further procedures/investigations Other bursal cyst, left shoulder Current Visit: Yes Status: Acute Plan: Patient has a cyst over his left shoulder nontender will have Dr. Kapoor evaluate outpatient (calcinosis) Hypertensive urgency As needed antihypertensive acute on chronic Situational confusion/outburst: Risperdol initiated and pt is improved today, outburst overnight. Will check on po depakote Diet advance Full code code DVT SCDs Disposition : resides at home Discharge Plan: rehab - Code Status/Comfort Care Code Status: Full Code Critical Care: No
[2023-07-22] MEDS: PANTOPRAZOLE 40 MG INJ IVP SCH (08:46)
[2023-07-22] MEDS: VALPROATE SODIUM INJ 250 MG in NA CHLORIDE 0.9% 100 ML IV ONE ×2 (11:32→16:44)
[2023-07-22] MEDS: NA CHLORIDE 0.9% 500 ML ONE (12:00)
--- NOTE | 2023-07-22 12:02 | P.PN ---
Nephrology Progress Note Remains intermittently confused, restless, did awaken during my bedside eval and did slowly recognize me. Slow to respond but not agitated or restless when seen Vital Signs, Medications, Blood Work, and Imaging reviewed in the chart NAD. Appears chronically ill Neck Supple. Normal Respiratory Effort. No rales anteriorly RRR. No friction rubs. Abd ND, soft, no guarding. LE Edema none. Left hand deformity. No Rashes. No tremors or myoclonus, moves ext spont Assessment & Plan ESRD chronically 2nd to HTN/other. Small kidneys b/l -Has done more poorly on CCPD recently with continued intermittent abd pain, N/V, other. In this setting, will remove PD catheter and cont transition to OP iHD via CVC -Stable metab profile Labile HTN with CKD/ CHF -Continue meds, monitor closely Severe Protein Malnutrition Hypoalbuminemia -Albumin has dropped sharply, cont supplements, will review role for appetite stimulants, other. Fever unspecified. Abd pain unspecified. Diagnosis of recurrent pancreatitis. -PD effluent cell count was abnormal, large no of RBC, possibly traumatic. WBC < 250K. Neg for bacterial peritonitis, but will send off ascitic fluid for fungal culture since procal and CRP sig elevated
[2023-07-22] MEDS ORDERED: ONDANSETRON 4 MG/2 ML VIAL ONE ×2 (12:18→13:03)
[2023-07-22] MEDS ORDERED: dexAMETHasone 4 MG/ML VIAL ONE ×2 (12:18→13:03)
[2023-07-22] MEDS ORDERED: LIDOCAINE 1% MPF 5 ML VIAL ONE (12:18)
[2023-07-22] MEDS ORDERED: propofoL 200 MG/20 ML VIAL IV ONE (12:18)
[2023-07-22] MEDS ORDERED: MIDAZOLAM HCL 2 MG/2 ML INJ ONE (12:19)
[2023-07-22] MEDS ORDERED: FENTANYL CITR 100 MCG/2 ML ONE (12:19)
[2023-07-22] MEDS ORDERED: ROCURONIUM 50 MG/5 ML VIAL IV ONE (12:19)
[2023-07-22] MEDS ORDERED: EPHEDRINE SULF 50 MG/ML VIAL ONE (13:14)
[2023-07-22] MEDS: BUPIVACAINE 0.25% PF 30 ML VIAL ONE (13:29)
[2023-07-22] MEDS ORDERED: GLYCOPYRROLATE 0.2 MG/ML SYR ONE (13:55)
--- NOTE | 2023-07-22 14:03 | P.OP ---
Preoperative diagnosis: Requested Removal of PD Catheter, Postoperative diagnosis: Requested Removal of PD Catheter, Primary procedure: Laparoscopic Removal of Tunelled Peritoneal Dialysis Catheter Secondary procedure: Wound Exploration, removal of foreign body Anesthesia: GETA + Local Estimated blood loss: < 250cc old clot, 10cc acute loss Specimen: Cultures sent for sensitivity, fungal, cath for ID only, foreign body Findings: foreign body -calcified tubing, 250cc old clot in pelvis, no active bleedin Complications: None Transferred to: Recovery Room Condition: Good
[2023-07-22 18:46] LABS: Hematocrit 28.5 % (39.6-49.0); Hemoglobin 9.1 g/dL (13.6-17.9)
--- NOTE | 2023-07-22 20:12 | OP ---
Date of Procedure: 07/22/2023 Surgeon: Adrian Kapoor MD, Preoperative Diagnosis: Requested removal of peritoneal dialysis catheter. Postoperative Diagnosis: Requested removal of peritoneal dialysis catheter. Procedures Performed: 1.Laparoscopic removal of tunneled peritoneal dialysis catheter. 2.Wound exploration. 3.Removal of foreign body. 4. esophagogastroduodenoscopy: See EGD report for full details regarding esophagogastrodu odenoscopy and findings regarding that aspect of the operation. Anesthesia: General endotracheal plus local with 0.25% Marcaine. Estimated Blood Loss: Approximately 250 cc of old clot was evacuated and 10 cc of acute blood loss f or the procedure. Specimen: Cultures sent were aerobic and anaerobic speciation as well as fungal cultures, cath for I D and foreign body with calcinosis material. Findings: 1.Calcified foreign body from old tubing encasement found in the previous wound site adjacent and in between the previous 2 excision sites with cuffs. 2.Patient had approximately 250 cc of old blood clot in the pelvis with no active bleeding or extrav asation appreciated throughout the procedure. Complications: None. Disposition: Patient was transferred to recovery room in good condition. Procedure In Detail: After informed consent was obtained, patient was brought to the operating room, prepped and draped in the usual sterile fashion after adequate anesthesia was achieved. I used a pr eviously placed left upper quadrant 5 mm trocar incision to enter the abdomen with a 5 mm 0 degree op tical trocar without incident or complication. No injuries to vital structure appreciated upon entry into the abdomen. Insufflation was maintained at 15 mmHg throughout the procedure. At this point, I placed an additional trocar in the left lower quadrant. This was similarly anesthetized and sharpl y incised. A 5 mm trocar was placed under direct visualization without incident or complication. I then brought the suction company doctor down to the pelvis and noted approximately 250 cc of old blood valerie t was in the pelvis. This was suctioned out until completely dry. No active bleeding was appreciate d. The fluid effluent was clear including washings of the pelvis at the end of the procedure. At th is point, I instilled sterile saline into the pelvis and suctioned it out through the peritoneal dial ysis catheter tubing and sent it off approximately 50 cc of fluid for analysis for both culture inclu ding aerobic, anaerobic speciation as well as fungal cultures. I then opened the previous incision o f the abdominal wall and removed the peritoneal dialysis catheter. As these cuff were fresh, they we re easy to remove. At this point, I transected the catheter and removed the catheter under direct vi sualization from the peritoneal cavity without incident or complication. Sent it off for pathologic examination for ID only and removed the proximal aspect of the catheter through the incision. I then irrigated these areas and allowed the abdomen to desufflate, leaving the trocars in place. They wer e drained appropriately, at this point, and the abdomen was desufflated under direct visualization wi thout incident or complication. All remaining trocars were removed. All skin edges were then copiou sly irrigated. I found an additional firm area of tubing/possible calcified tissue from the previous ly placed peritoneal dialysis catheter to the left of the umbilicus. I made an incision overlying th is and dissected down to remove additional small piece of tubing which appeared to have possibly been a small 1.5 cm connection from the previous tubing. It was heavily calcified. This was grasped, el evated and removed using a combination of sharp dissection and electrocautery, sent off for pathologi c examination as well. The area was copiously irrigated. Minimal hemostatic measures were required, at this point. Hemostasis was good and achieved at the end of the procedure. I then irrigated all incisions and closed all incisions with irrigated interrupted sanjana and a sterile dressing was plac ed over top. Patient tolerated the procedure without incident or complication. Transferred to PACU in good condition. All counts w ere correct at the end of the case. CASEY/EVERETT Voice ID: [id number] Report ID: [id number]
[2023-07-22] MEDS: DIVALPROEX DR 250 MG TAB PO SCH (23:00)
[2023-07-23 03:10] LABS: Hematocrit 27.6 % (39.6-49.0)
[2023-07-23 07:17] LABS: Absolute Monocytes 0.6 K/uL (0.1-1.3); Absolute Neutrophil 3.8 K/uL (1.8-8.0); Basophils % 0.5 % (0-1.3); Eosinophils % 0.3 % (0-4.4); Hematocrit 25.3 % (39.6-49.0); Hemoglobin 8.3 g/dL (13.6-17.9); Lymphocytes % 17.8 % (15.3-44.8); MCHC 32.9 g/dL (32.0-36.0); MCV 88.1 fL (80-100); MPV 6.9 fL (7.6-11.3); Monocytes % 11.3 % (3.3-12.3); Neutrophils % 70.1 % (41.7-73.7); Nucleated Red Blood Cells % 0.4 % (0-0); Platelets 342 thou/uL (152-406); RBC Red Blood Cell Count 2.87 M/uL (4.33-5.43)
[2023-07-23 07:36] LABS: ALT/SGPT < 10 U/L (16-61); AST/SGOT 13 U/L (15-37); Albumin 1.6 g/dL (3.4-5.0); Albumin/Globulin Ratio 0.5 (1.1-1.8); Alkaline Phosphatase 59 U/L (45-117); Anion Gap 12.8 mEq/L (5.0-15.0); BUN Blood Urea Nitrogen 30 mg/dL (7-18); Bicarbonate 23 mEq/L (21-32); Bilirubin Total 0.4 mg/dL (0.2-1.0); Globulin 3.1 g/dL (2.3-3.5); Glomerular Filtration Rate 11 ml/min (=/>90); Glucose Level 64 mg/dL (74-106); Potassium 4.8 mEq/L (3.5-5.1); Protein, Total 4.7 g/dL (6.4-8.2); Sodium Level 137 mEq/L (136-145)
[2023-07-23 10:37] LABS: Hematocrit 28.9 % (39.6-49.0); Hemoglobin 9.4 g/dL (13.6-17.9)
--- NOTE | 2023-07-23 12:06 | P.PN ---
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 Marie and Dr. Chavez. Dr. Kapoor did dc PD cath. Discussion continues re: hospice vs further procedures/investigations. MRCP ordered for findings during operation. Cannot be done prior to Tuesday. Discussed nutritional state with Dr. Kapoor. He increased diet to renal diet but Mr. Lafleur is not eating. Will request PICC for TPN and continue to offer increased oral nutrition. Other bursal cyst, left shoulder Current Visit: Yes Status: Acute Plan: Patient has a cyst over his left shoulder nontender will have Dr. Kapoor evaluate outpatient (calcinosis) Hypertensive urgency As needed antihypertensive acute on chronic Situational confusion/outburst: Risperdol continues, pt was calmer overnight. Mrs. Lafleur is exhausted, currently ill, and is contemplating hospice for Mr. Lafleur Diet advance Full code code DVT SCDs Disposition : resides at home Discharge Plan: rehab - Code Status/Comfort Care Code Status: Full Code Critical Care: No
--- NOTE | 2023-07-23 15:26 | P.PN ---
Nephrology Progress Note Dr. Espinosa's OP report reviewed in detail, I appreciate his assistance. Case discussed in detail with pt's . Pt lethargic/sleeping when seen, had received pain medication earlier per pt request. Has been OOB on his own per but is unsteady on his feet Vital Signs, Medications, Blood Work, and Imaging reviewed in the chart NAD. Appears chronically ill Neck Supple. Normal Respiratory Effort. No rales anteriorly RRR. No friction rubs. Abd ND, soft, no guarding. LE Edema none. Left hand deformity. No Rashes. Sleeping, does not engage in conversation. No tremors or myoclonus noted Assessment & Plan ESRD chronically 2nd to HTN/other. Small kidneys b/l -Has done more poorly on CCPD recently with continued intermittent abd pain, N/V, other. In that setting, did remove PD catheter and will cont transition to OP iHD via CVC -Stable metab profile. HD today. Labile HTN with CKD/ CHF -Continue meds, monitor closely. Monitor for intra dialytic or orthostatic hypotension Severe Protein Malnutrition Hypoalbuminemia -Albumin has dropped sharply, cont supplements, will review role for appetite stimulants, other. Fever unspecified. Abd pain unspecified. Diagnosis of recurrent pancreatitis. -PD effluent cell count was abnormal, large no of RBC, possibly traumatic. WBC < 250K. Neg for bacterial peritonitis, but will send off ascitic fluid for fungal culture since procal and CRP sig elevated. -Findings of old pelvic hematoma and small foreign body (small tubing of prior catheter) removed, unclear if these were also contributing to the above mentioned.
[2023-07-23] MEDS: VITAMIN D 1000 UNIT TAB PO SCH (17:36)
[2023-07-23] MEDS: MULTIVITAMINS,THERAPEUT 1 TAB PO SCH (17:37)
[2023-07-23] MEDS: RISPERIDONE 1 MG TABLET PO SCH (20:06)
[2023-07-23] MEDS: Mupirocin NASAL 2 APPL/1 GM TUBE NAS SCH (20:07)
[2023-07-24] MEDS: RISPERIDONE 0.25 MG TABLET PO SCH (08:14)
--- NOTE | 2023-07-24 08:48 | P.PN ---
Date of Service: 07/24/23 Date of Service: 07/21/23 Chief Complaint: Leaking peritoneal catheter Patient is 63 years of age was recently discharged from [facility] was there for 2 weeks with abdominal pain and he left AMA apparently came back and he accidentally nicked his peritoneal catheter and started leaking considerably. He still has his chronic abdominal discomfort, elevated lipase, acute pancreatitis as needed analgesics added, n.p.o. Acting out overnight, being abusive to staff. They tried to reorient him, sitter at bedside. He swung his fist at her. They called his who stated she would come up. On my arrival this am, pt was beligerent, threatening staff. He was calm for me, repositioned in bed, fentanyl given IV per RN. Pt resting with eyes closed after 5-10min. Sitter still at bedside but not in view of Mr. Lafleur. Dr. Chavez has discussed this behavior with Dr. Adam (PCP) and Mrs. Lafleur. They feel he has given up on living and acts out of frustration. Conversations about hospice ongoing. 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 Kapoor. hemodialysis catheter used 07/19 and 07/20. Labs improved Nephrology consulted. peritoneal fluid from PD catheter sent for analysis culture with no growth, blood cultures pending, Chest x-ray yesterday without concerning findings. Pt had low grade fever to 100.4 again this am. Zosyn reordered. Cath for urine did not produce a sample for culture. Discussed case with Dr. Marie and Dr. Chavez. Dr. Kapoor did dc PD cath yesterday.Discussion continues re: hospice vs further procedures/investigations. MRCP ordered for findings during operation. Cannot be done prior to Tuesday. Discussed nutritional state with Dr. Kapoor. He increased diet to renal diet but Mr. Lafleur is not eating. Will request PICC for TPN and continue to offer increased oral nutrition if agreeable with patient/family Other bursal cyst, left shoulder Current Visit: Yes Status: Acute Plan: Patient has a cyst over his left shoulder nontender will have Dr. Kapoor evaluate outpatient (calcinosis) Hypertensive urgency As needed antihypertensive acute on chronic Situational confusion/outburst: Risperdol continues, pt was calmer overnight. Mrs. Lafleur is exhausted, currently ill, and is contemplating hospice for Mr. Lafleur Diet advance Full code code DVT SCDs Disposition : resides at home Discharge Plan: rehab - Code Status/Comfort Care Code Status: Full Code Critical Care: No
[2023-07-24 13:27] LABS: Thyroid Stimulating Hormone 1.48 uIU/mL (0.358-3.740)
[2023-07-24] MEDS ORDERED: CALCIUM CARBONATE 500 MG TAB PO PRN (16:04)
[2023-07-25] MEDS: HALOPERIDOL LACT 5 MG/ML INJ IM ONE (00:11)
[2023-07-25] MEDS: HALOPERIDOL LACT 5 MG/ML INJ ONE (00:30)
[2023-07-25] MEDS: HALOPERIDOL LACT 5 MG/ML INJ IM PRN (00:45)
--- NOTE | 2023-07-25 06:53 | ECHO ---
HEIGHT: 5 ft 9 in WEIGHT: 143 lb 12.8 oz DATE OF STUDY: 07/22/[address]: Kolby Chavez MD 2-DIMENSIONAL: YES M.MODE: YES DOPPLER: YES COLOR FLOW: YES TDS: NO PORTABLE: YES DEFINITY: NO BUBBLE STUDY: NO DIAGNOSIS: VEGETATIONS CARDIAC HISTORY: CATHERIZATION: NO SURGERY: NO PROSTHETIC VALVE: NO PACEMAKER: NO MEASUREMENTS (cm) DIASTOLIC (NORMALS) SYSTOLIC (NORMALS) IVSd 1.3 (0.6-1.2) LA Diam 2.9 (1.9-4.0) LVEF 72% LVIDd 3.9 (3.5-5.7) LVIDs 2.3 (2.0-3.5) %FS 41% LVPWd 1.4 (0.6-1.2) Ao Diam 3.0 (2.0-3.7) 2 DIMENSIONAL ASSESSMENT: RIGHT ATRIUM: NORMAL LEFT ATRIUM: NORMAL RIGHT VENTRICLE: NORMAL LEFT VENTRICLE: LEFT VENTRICULAR HYPERTROPHY TRICUSPID VALVE: TRACE OF MITRAL REGURGITATION MITRAL VALVE: NORMAL PULMONIC VALVE: TRACE OF PULMONIC INSUFFICIENCY AORTIC VALVE: CALCIFIED AORTIC VALVE WITH MILD MITRAL REGURGITATION PERICARDIAL EFFUSION: NONE AORTIC ROOT: NORMAL LEFT VENTRICULAR WALL MOTION: NORMAL. DOPPLER/COLOR FLOW: SEE BELOW. COMMENTS: 1. NORMAL LEFT VENTRICULAR EJECTION FRACTION 60-65% WITH NORMAL WALL MOTION. 2. GRADE I DIASTOLIC DYSFUNCTION. 3. CALCIFIED AORTIC VALVE WITH MILD MITRAL REGURGITATION, NO CLEAR VEGETATION IS SEEN. 4. NO CLEAR VEGETATION IS SEEN, RAFAT CAN BE HELPFUL IF CLINICALLY INDICATED TECHNOLOGIST: MARQUIS THOMAS
[2023-07-25 07:00] LABS: Absolute Basophils 0.1 K/uL (0-0.5); Absolute Eosinophils 0.2 K/uL (0-0.5); Absolute Lymphocytes (CBC) 1.3 K/uL (0.7-4.9); Absolute Monocytes 0.9 K/uL (0.1-1.3); Absolute Neutrophil 3.7 K/uL (1.8-8.0); Basophils % 0.9 % (0-1.3); Eosinophils % 2.5 % (0-4.4); Hematocrit 27.4 % (39.6-49.0); MCH 28.9 pg (27.0-35.0); MCHC 32.7 g/dL (32.0-36.0); MCV 88.4 fL (80-100); MPV 6.9 fL (7.6-11.3); Monocytes % 14.9 % (3.3-12.3); Neutrophils % 60.7 % (41.7-73.7); Nucleated Red Blood Cells % 0.1 % (0-0); Platelets 383 thou/uL (152-406); Red Cell Distribution Width 18.1 % (12.1-15.2)
[2023-07-25 07:26] LABS: ALT/SGPT < 10 U/L (16-61); AST/SGOT 15 U/L (15-37); Albumin 1.7 g/dL (3.4-5.0); Albumin/Globulin Ratio 0.6 (1.1-1.8); Alkaline Phosphatase 63 U/L (45-117); Anion Gap 11.5 mEq/L (5.0-15.0); BUN Blood Urea Nitrogen 24 mg/dL (7-18); Bicarbonate 25 mEq/L (21-32); Bilirubin Total 0.4 mg/dL (0.2-1.0); Globulin 2.9 g/dL (2.3-3.5); Glomerular Filtration Rate 11 ml/min (=/>90); Glucose Level 73 mg/dL (74-106); Magnesium 2.2 mg/dL (1.6-2.4); Potassium 3.5 mEq/L (3.5-5.1); Protein, Total 4.6 g/dL (6.4-8.2); Sodium Level 139 mEq/L (136-145)
[2023-07-25 07:31] LABS: TOTAL PROTEIN,PERITONEAL FLUID <3.0 g/dL
--- NOTE | 2023-07-25 10:57 | P.PN ---
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 Seay for Tuesday 07/18 (notified on 07/17) Metabolic encephalopathy fall precautions elevated CRP 121.00 Elevated procalcitonin Procalcitonin 4.68-14.78-121-34.32- No leukocytosis, afebrile, vs/bp stable Fluid restriction secondary to end-stage renal disease Biopsy status post peritoneal dialysis catheter-f benign fibroadipose tissue with sclerotic changes. Focal polarizable foreign material is identified. Cytology report s/p PD cath removal w reactive mesothelial cells. No malignant cells are identified 07/16/2307/21 Removal of peritoneal dialysis catheter Dr chely Kapoor Leaking peritoneal cath. 07/21 Acid-fast bacilli culture and smear pending Blood cultures negative x 5 days Fungal culture and stain pending 07/19 Ascites Gram stain no growth Leakage of peritoneal dialysis catheter malfunction End-stage renal disease, peritoneal dialysis malfunction acute 07/21 Removal of peritoneal dialysis catheter Dr chely Kapoor Hemodialysis Current Visit: Yes Status: Acute admitted with a leaking peritoneal dialysis catheter apparently he damaged it. He has chronic abdominal pain was recently discharged from [facility] was treated with painkillers and has chronic renal failure mild hyponatremia sodium 135 otherwise vital signs are all stable Dr. Rubin has been consulted he is scheduled to have a replacement of his peritoneal dialysis catheter possibly an arterial catheter placed in the interim. 07/17 peritoneal catheter removed, replaced with hemodialysis catheter for hemodialysis (nephrology cleared patient for CT on 07-17, plan for hemodialysis on Monday 07/17 ) Nephrology consulted for hemodialysis HD planned for 07/18 Fever unspecified Abd pain unspecified. Diagnosis of recurrent pancreatitis. -PD effluent cell count was abnormal, large no of RBC, possibly traumatic. WBC < 250K. Neg for bacterial peritonitis, but will send off ascitic fluid for fungal culture since procal and CRP sig elevated trend wbc Microcytic anemia likely secondary to CKD Hemoglobin 8.3, 9.1hgb 8.3, 9.1 B12 deficiency B12 replacement Severe Protein Malnutrition Hypoalbuminemia supplement added Other bursal cyst, left shoulder Current Visit: Yes Status: Acute Patient has a cyst over his left shoulder nontender will have Dr. Scottie alvarez uate 07/17 CT Left Shoulder : 5 centimeter calcified mass left shoulder with additional smaller calcifications. 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
--- NOTE | 2023-07-25 20:09 | P.PN ---
Date of Service: 07/25/23 Vital Signs Temp Pulse Resp BP Pulse Ox 98.5 F 93 H 16 166/93 H 100 07/25/23 15:55 07/25/23 15:55 07/25/23 15:55 07/25/23 15:55 07/25/23 15:55 Medications Acetaminophen (Acetaminophen 325 Mg Tablet) 650 mg PO Q6H PRN PRN Reason: fever Last Admin: 07/23/23 20:06 Dose: 650 mg Hydrocodone Bitart/Acetaminophen (Hydrocodone/Apap 10/325 Tab) 1 tab PO Q4H PRN PRN Reason: Pain scale 8-10 (Severe) Last Admin: 07/23/23 18:42 Dose: 1 tab Calcitriol (Calcitrol 0.25 Mcg Cap) 0.5 mcg PO DAILY [facility] Last Admin: 07/25/23 08:58 Dose: 0.5 mcg Calcium Carbonate/Glycine (Calcium Carbonate 500 Mg Tab) 500 mg PO BID PRN PRN Reason: INDIGESTION Carvedilol (Carvedilol 25 Mg Tab) 25 mg PO BID 6AM 6PM [facility] Last Admin: 07/25/23 18:15 Dose: 25 mg Cholecalciferol (Vitamin D 1000 Unit Tab) 2,000 unit PO DAILY [facility] Last Admin: 07/25/23 08:58 Dose: 2,000 unit Coenzyme Q10 (Coenzyme Q10- 200 Mg Cap) 200 mg PO DAILY [facility] Last Admin: 07/25/23 08:56 Dose: 200 mg Divalproex Sodium (Divalproex Dr 250 Mg Tab) 250 mg PO BID [facility] Last Admin: 07/25/23 08:57 Dose: 250 mg Docusate Sodium (Docusate Na 100 Mg Cap) 100 mg PO BID [facility] Last Admin: 07/25/23 08:56 Dose: Not Given Epoetin Coy (Epoetin Coy 10,000 Unit/Ml Vial) 10,000 unit IV EVERY HD [facility] Last Admin: 07/23/23 14:35 Dose: 10,000 unit Fentanyl Citrate (Fentanyl Citr 100 Mcg/2 Ml) 25 mcg IV Q4H PRN PRN Reason: MODERATE TO SEVERE PAIN Last Admin: 07/25/23 16:44 Dose: 25 mcg Heparin Sodium (Porcine) (Heparin 1,000 Unit/Ml Vial) 6,000 unit IV EVERY HD PRN PRN Reason: AFTER EACH Last Admin: 07/23/23 17:50 Dose: 6,000 unit Hydralazine HCl (Hydralazine Hcl 20 Mg/Ml Vial) 10 mg IV Q4HP PRN PRN Reason: Goal to achieve SBP in comment Last Admin: 07/24/23 08:35 Dose: 10 mg Albumin Human (Albumin 25%) 50 mls @ 100 mls/hr IV EVERY HD [facility] Last Admin: 07/23/23 14:35 Dose: 50 mls Piperacillin Sod/Tazobactam (Sod 3.375 gm/ Sodium Chloride) 100 mls @ 25 mls/hr IV Q12HR [facility]; Protocol Last Admin: 07/25/23 08:58 Dose: 100 mls Lactobacillus Acidoph/Bulgaricus (Lactobacillus/Acidophilus Tab) 1 tab PO BID [facility] Last Admin: 07/25/23 08:57 Dose: 1 tab Lorazepam (Lorazepam 2 Mg/Ml Vial) 0.5 mg IV Q4H PRN PRN Reason: ANXIETY Last Admin: 07/25/23 18:37 Dose: 0.5 mg Losartan Potassium (Losartan Potassium 50 Mg Tablet) 100 mg PO DAILY [facility] Last Admin: 07/25/23 08:57 Dose: 100 mg Mupirocin (Mupirocin Nasal 2 Appl/1 Gm Tube) 1 appl NICKY BID [facility] Stop: 07/28/23 09:01 Last Admin: 07/25/23 08:56 Dose: 1 appl Nutritional Formula (Ensure High Protein 237 Ml Can) 237 ml PO BID [facility] Last Admin: 07/25/23 08:57 Dose: 237 ml Ondansetron HCl (Ondansetron 4 Mg/2 Ml Vial) 4 mg IV Q4H PRN PRN Reason: NAUSEA / VOMITING Last Admin: 07/24/23 09:38 Dose: 4 mg Pantoprazole Sodium (Pantoprazole 40 Mg Inj) 40 mg IVP DAILY [facility]; Protocol Last Admin: 07/25/23 08:58 Dose: 40 mg Risperidone (Risperidone 1 Mg Tablet) 1 mg PO BEDTIME [facility] Last Admin: 07/24/23 20:03 Dose: 1 mg Risperidone (Risperidone 0.25 Mg Tablet) 0.5 mg PO BREAKFAST [facility] Last Admin: 07/25/23 08:56 Dose: 0.5 mg Sodium Chloride (Sodium Chloride 0.9% 10ml Inj) 10 ml IV UD PRN PRN Reason: Diluant Vitamin B Complex/Vit C/Folic Acid (Multivitamins,Therapeut 1 Tab) 1 tab PO KAREN LY [facility] Last Admin: 07/25/23 08:57 Dose: 1 tab Assessment/ Plan: Nephrology Progress Note No Dyspnea No Chest Pain Waxing and waning mental status No Acute Events Overnight Case reviewed with his and daughter Vital Signs, Medications, Blood Work, and Imaging reviewed in the chart NAD. NCAT. MMM. Neck Supple. Normal Respiratory Effort. RRR. Abd ND. No C/C. LE Edema none. Left hand deformity. No Rash. Awake. Normal Speech. Poor hearing. Assessment & Plan ESRD -PD catheter removed -HD CVC status -HD TIW Hyponatremia -HD TIW HTN with CKD/ CHF -Continue Losartan -Continue Coreg Diastolic CHF, chronic -Daily weight Severe Protein Malnutrition Hypoalbuminemia -Protein supplementation as ordered -IV Albumin prn Anemia in CKD -Retacrit qHD -PRBC prn CKD MBD -Continue Ergo FUO -Follow up cultures -Continue Abx Case reviewed with Dr. Chavez
[2023-07-25] MEDS: RISPERIDONE 1 MG TABLET ONE (20:51)
[2023-07-25] MEDS ORDERED: HALOPERIDOL LACT 5 MG/ML INJ IM PRN (23:59)
[2023-07-26] MEDS: HALOPERIDOL LACT 5 MG/ML INJ IM ONE (00:31)
[2023-07-26 04:22] LABS: Absolute Eosinophils 0.2 K/uL (0-0.5); Absolute Lymphocytes (CBC) 1.1 K/uL (0.7-4.9); Absolute Monocytes 0.9 K/uL (0.1-1.3); Absolute Neutrophil 5.8 K/uL (1.8-8.0); Basophils % 0.6 % (0-1.3); Eosinophils % 2.1 % (0-4.4); Hematocrit 27.6 % (39.6-49.0); Hemoglobin 9.1 g/dL (13.6-17.9); Lymphocytes % 13.9 % (15.3-44.8); MCH 29.4 pg (27.0-35.0); MCV 89.1 fL (80-100); MPV 6.8 fL (7.6-11.3); Monocytes % 11.4 % (3.3-12.3); Platelets 416 thou/uL (152-406)
[2023-07-26 04:49] LABS: ALT/SGPT < 10 U/L (16-61); AST/SGOT 17 U/L (15-37); Albumin 1.6 g/dL (3.4-5.0); Albumin/Globulin Ratio 0.5 (1.1-1.8); Alkaline Phosphatase 72 U/L (45-117); Anion Gap 12.5 mEq/L (5.0-15.0); BUN Blood Urea Nitrogen 32 mg/dL (7-18); Bicarbonate 23 mEq/L (21-32); Bilirubin Total 0.5 mg/dL (0.2-1.0); Globulin 3.1 g/dL (2.3-3.5); Glomerular Filtration Rate 8 ml/min (=/>90); Glucose Level 79 mg/dL (74-106); Potassium 3.5 mEq/L (3.5-5.1); Protein, Total 4.7 g/dL (6.4-8.2); Sodium Level 137 mEq/L (136-145)
--- NOTE | 2023-07-26 07:32 | P.PN ---
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 Seay for Tuesday 07/18 (notified on 07/17) Leakage of peritoneal dialysis catheter malfunction End-stage renal disease, peritoneal dialysis malfunction acute Hemodialysis Current Visit: Yes Status: Acute admitted with a leaking peritoneal dialysis catheter apparently he damaged it. He has chronic abdominal pain was recently discharged from [facility] was treated with painkillers and has chronic renal failure mild hyponatremia sodium 135 otherwise vital signs are all stable Dr. Rubin has been consulted he is scheduled to have a replacement of his peritoneal dialysis catheter possibly an arterial catheter placed in the interim. 07/17 peritoneal catheter removed, replaced with hemodialysis catheter for hemodialysis (nephrology cleared patient for CT on 07-17, plan for hemodialysis on Monday 07/17 ) Nephrology consulted for hemodialysis HD planned for 07/18 elevated CRP 121.00 Elevated procalcitonin Procalcitonin 4.68-14.78-121-34.32- No leukocytosis, afebrile, vs/bp stable Fluid restriction secondary to end-stage renal disease Biopsy status post peritoneal dialysis catheter-f benign fibroadipose tissue with sclerotic changes. Focal polarizable foreign material is identified. Cytology report s/p PD cath removal w reactive mesothelial cells. No malignant cells are identified 07/16/2307/21 Removal of peritoneal dialysis catheter Dr chely Kapoor Leaking peritoneal cath. 07/21 Acid-fast bacilli culture and smear pending Blood cultures negative x 5 days Fungal culture and stain pending 07/19 Ascites Gram stain no growth Fever unspecified Abd pain unspecified. Diagnosis of recurrent pancreatitis. -PD effluent cell count was abnormal, large no of RBC, possibly traumatic. WBC < 250K. Neg for bacterial peritonitis, but will send off ascitic fluid for fungal culture since procal and CRP sig elevated Metabolic encephalopathy fall precautions trend wbc Severe Protein Malnutrition Hypoalbuminemia B12 deficiency B12 replacement Other bursal cyst, left shoulder Current Visit: Yes Status: Acute Patient has a cyst over his left shoulder nontender will have Dr. Scottie jacobs evaluate 07/17 CT Left Shoulder : 5 centimeter calcified mass left shoulder with additional smaller calcifications. 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
[2023-07-26] MEDS ORDERED: RISPERIDONE 1 MG TABLET ONE (19:42)
--- NOTE | 2023-07-27 05:19 | P.PN ---
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 Seay for Tuesday 07/18 (notified on 07/17) Leakage of peritoneal dialysis catheter malfunction End-stage renal disease, peritoneal dialysis malfunction acute Hemodialysis Current Visit: Yes Status: Acute admitted with a leaking peritoneal dialysis catheter apparently he damaged it. He has chronic abdominal pain was recently discharged from [facility] was treated with painkillers and has chronic renal failure mild hyponatremia sodium 135 otherwise vital signs are all stable Dr. Rubin has been consulted he is scheduled to have a replacement of his peritoneal dialysis catheter possibly an arterial catheter placed in the interim. 07/17 peritoneal catheter removed, replaced with hemodialysis catheter for hemodialysis (nephrology cleared patient for CT on 07-17, plan for hemodialysis on Monday 07/17 ) Nephrology consulted for hemodialysis HD planned for 07/18 elevated CRP 121.00 Elevated procalcitonin IV Zosyn Procalcitonin 4.68-14.78-121-34.32-32.64 No leukocytosis, afebrile, vs/bp stable Fluid restriction secondary to end-stage renal disease Biopsy status post peritoneal dialysis catheter-f benign fibroadipose tissue with sclerotic changes. Focal polarizable foreign material is identified. Cytology report s/p PD cath removal w reactive mesothelial cells. No malignant cells are identified 07/16/2307/21 Removal of peritoneal dialysis catheter Dr chely Kapoor Leaking peritoneal cath. 07/21 Acid-fast bacilli culture and smear pending Blood cultures negative x 5 days Fungal culture and stain pending 07/19 Ascites Gram stain no growth Fever unspecified Abd pain unspecified. Diagnosis of recurrent pancreatitis. -PD effluent cell count was abnormal, large no of RBC, possibly traumatic. WBC < 250K. Neg for bacterial peritonitis, but will send off ascitic fluid for fungal culture since procal and CRP sig elevated Metabolic encephalopathy fall precautions trend wbc Severe Protein Malnutrition Hypoalbuminemia B12 deficiency B12 replacement Other bursal cyst, left shoulder Current Visit: Yes Status: Acute Patient has a cyst over his left shoulder nontender will have Dr. Scottie jacobs evaluate 07/17 CT Left Shoulder : 5 centimeter calcified mass left shoulder with additional smaller calcifications. 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
[2023-07-27 07:19] LABS: Absolute Basophils 0.1 K/uL (0-0.5); Absolute Eosinophils 0.2 K/uL (0-0.5); Absolute Lymphocytes (CBC) 1.6 K/uL (0.7-4.9); Absolute Monocytes 1.3 K/uL (0.1-1.3); Absolute Neutrophil 6.9 K/uL (1.8-8.0); Basophils % 0.7 % (0-1.3); Eosinophils % 1.8 % (0-4.4); Hemoglobin 9.5 g/dL (13.6-17.9); Lymphocytes % 16.3 % (15.3-44.8); MCH 29.6 pg (27.0-35.0); MCHC 32.9 g/dL (32.0-36.0); MCV 89.9 fL (80-100); MPV 6.6 fL (7.6-11.3); Monocytes % 12.8 % (3.3-12.3); Neutrophils % 68.4 % (41.7-73.7); Platelets 525 thou/uL (152-406); RBC Red Blood Cell Count 3.22 M/uL (4.33-5.43); Red Cell Distribution Width 18.4 % (12.1-15.2)
[2023-07-27 07:41] LABS: ALT/SGPT < 10 U/L (16-61); AST/SGOT 18 U/L (15-37); Albumin 1.9 g/dL (3.4-5.0); Albumin/Globulin Ratio 0.6 (1.1-1.8); Alkaline Phosphatase 67 U/L (45-117); Anion Gap 10.9 mEq/L (5.0-15.0); BUN Blood Urea Nitrogen 21 mg/dL (7-18); Bicarbonate 23 mEq/L (21-32); Bilirubin Total 0.5 mg/dL (0.2-1.0); Globulin 3.2 g/dL (2.3-3.5); Glomerular Filtration Rate 13 ml/min (=/>90); Glucose Level 82 mg/dL (74-106); Magnesium 2.2 mg/dL (1.6-2.4); Phosphorus 3.6 mg/dL (2.5-4.9); Potassium 3.9 mEq/L (3.5-5.1); Protein, Total 5.1 g/dL (6.4-8.2); Sodium Level 138 mEq/L (136-145)
[2023-07-27] MEDS: FENTANYL 25 MCG/PATCH TD ONE (15:07)
[2023-07-27] MEDS: FENTANYL CITR 100 MCG/2 ML IV ONE (15:30)
[2023-07-28] MEDS: LORazepam 2 MG/ML VIAL IV ONE (02:56)
--- NOTE | 2023-07-28 08:27 | P.PN ---
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 Seay for Tuesday 07/18 (notified on 07/17) Leakage of peritoneal dialysis catheter malfunction End-stage renal disease, peritoneal dialysis malfunction acute Hemodialysis Current Visit: Yes Status: Acute admitted with a leaking peritoneal dialysis catheter apparently he damaged it. He has chronic abdominal pain was recently discharged from [facility] was treated with painkillers and has chronic renal failure mild hyponatremia sodium 135 otherwise vital signs are all stable Dr. Rubin has been consulted he is scheduled to have a replacement of his peritoneal dialysis catheter possibly an arterial catheter placed in the interim. 07/17 peritoneal catheter removed, replaced with hemodialysis catheter for hemodialysis (nephrology cleared patient for CT on 07-17, plan for hemodialysis on Monday 07/17 ) Nephrology consulted for hemodialysis HD planned for 07/18 elevated CRP 121.00 Elevated procalcitonin IV Zosyn Procalcitonin 4.68-14.78-121-34.32-32.64 No leukocytosis, afebrile, vs/bp stable Fluid restriction secondary to end-stage renal disease Biopsy status post peritoneal dialysis catheter-f benign fibroadipose tissue with sclerotic changes. Focal polarizable foreign material is identified. Cytology report s/p PD cath removal w reactive mesothelial cells. No malignant cells are identified 07/16/2307/21 Removal of peritoneal dialysis catheter Dr chely Kapoor Leaking peritoneal cath. 07/21 Acid-fast bacilli culture and smear pending Blood cultures negative x 5 days Fungal culture and stain pending 07/19 Ascites Gram stain no growth Fever unspecified Abd pain unspecified. Diagnosis of recurrent pancreatitis. -PD effluent cell count was abnormal, large no of RBC, possibly traumatic. WBC < 250K. Neg for bacterial peritonitis, but will send off ascitic fluid for fungal culture since procal and CRP sig elevated Metabolic encephalopathy fall precautions trend wbc Severe Protein Malnutrition Hypoalbuminemia B12 deficiency B12 replacement Other bursal cyst, left shoulder Current Visit: Yes Status: Acute Patient has a cyst over his left shoulder nontender will have Dr. Scottie jacobs evaluate 07/17 CT Left Shoulder : 5 centimeter calcified mass left shoulder with additional smaller calcifications. 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
[2023-07-28 13:25] VITALS: O2SAT 97
[2023-07-28 16:32] VITALS: BP 131/81; TEMP 98.7
--- NOTE | 2023-07-28 18:14 | P.DS ---
Admission Date: 07/15/23 Discharge Date: 07/28/23 Disposition: DC HOME/HOME HEALTH CARE Discharge Condition: GOOD Reason for Admission: Leaking peritoneal catheter Brief History of Present Illness: Patient is 63 years of age was recently discharged from [facility] was there for 2 weeks with abdominal pain and he left AMA apparently came back and he accidentally nicked his peritoneal catheter and started leaking considerably. 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 Was noted to have an leaky peritoneal dialysis catheter, was evaluated by surgery, peritoneal dialysis catheter removed, replaced with hemodialysis catheter. Patient treated with as needed analgesics, IV antibiotics. Patient became confused was treated with antipsychotics, for metabolic encephalopathy. Also noted to have severe protein malnutrition, treated with Nepro shakes 3 times daily. Patient followed by nephrology for hemodialysis Problem Malfunction of peritoneal dialysis Replacement of hemodialysis catheter, end-stage renal disease treated with hemodialysis Fever of unknown origin, Metabolic encephalopathy, Acute on chronic pain, Protein malnutrition Discharged home on Ativan for anxiety Augmentin Coreg Ensure shakes Hydrocodone for pain Respiratory Follow-up with nephrology for hemodialysis Tuesday, Tuesday, Tuesday at 1:45pm [facility] ([phone]) Discharge home with [facility] so that she can transition to hospice at a later time if needed. Continue home medicines as previously prescribed GOAL: Clear understanding of disease process INSTRUCTIONS: Physician Discharge Instructions: -Follow-up with PCP in 1 to 2 weeks -Please call Dr. Chavez at [phone] if any questions regarding hospital stay -Please call nursing station at [phone] if any nursing or medication questions -Return to the emergency room if symptoms worsen Diet: ADA, low sodium Activity: Fall precautions Vital Signs/Physical Exam: Temp Pulse Resp BP Pulse Ox 98.7 F 84 20 131/81 97 07/28/23 16:00 07/28/23 16:00 07/28/23 16:00 07/28/23 16:00 07/28/23 16:00 Laboratory Data at Discharge: WBC 10.10 thou/uL (4.3-10.9) 07/27/23 07:09 Hgb 9.5 g/dL (13.6-17.9) L 07/27/23 07:09 Hct 29.0 % (39.6-49.0) L 07/27/23 07:09 Plt Count 525 thou/uL (152-406) H D 07/27/23 07:09 PT 12.6 SECONDS (9.5-12.5) H 07/16/23 01:45 INR 1.15 07/16/23 01:45 Sodium 138 mEq/L (136-145) 07/27/23 07:09 Potassium 3.9 mEq/L (3.5-5.1) 07/27/23 07:09 BUN 21 mg/dL (7-18) H 07/27/23 07:09 Creatinine 4.77 mg/dL (0.70-1.30) H 07/27/23 07:09 Glucose 82 mg/dL (74-106) 07/27/23 07:09 Phosphorus 3.6 mg/dL (2.5-4.9) 07/27/23 07:09 Magnesium 2.2 mg/dL (1.6-2.4) 07/27/23 07:09 Total Bilirubin 0.5 mg/dL (0.2-1.0) 07/27/23 07:09 AST 18 U/L (15-37) 07/27/23 07:09 ALT < 10 U/L (16-61) L 07/27/23 07:09 Alkaline Phosphatase 67 U/L (45-117) 07/27/23 07:09 Triglycerides 198 mg/dL (<150) H 07/17/23 08:31 Cholesterol 133 mg/dL (<200) 07/17/23 08:31 HDL Cholesterol 29 mg/dL (40-60) L 07/17/23 08:31 Cholesterol/HDL Ratio 4.59 07/17/23 08:31 Lipase 168 U/L (13-75) H 07/20/23 04:19 Home Medications: Fenofibrate [Tricor*] 145 mg PO BEDTIME 07/16/23 Gabapentin 100 mg PO DAILY 07/16/23 Losartan Potassium 100 mg PO DAILY 07/16/23 Pantoprazole [Protonix Tab*] 40 mg PO DAILY 07/16/23 Tamsulosin [Flomax*] 0.4 mg PO DAILY 07/16/23 Amox/Clavulanate [Augmentin 875-125 Tab] 875 mg PO DAILY #14 tab 07/28/23 Calcitrol [Rocaltrol*] 0.5 mcg PO DAILY #30 cap 07/28/23 Calcium Carbonate [Oscal*] 500 mg PO BID PRN #60 tab 07/28/23 Cholecalciferol (Vitamin D3) [Vitamin D 1000 Iu Tab*] 2,000 unit PO DAILY #30 tab 07/28/23 Divalproex Sodium [Depakote ER] 250 mg PO BID #60 tab.sr.24h 07/28/23 Docusate [Colace Cap*] 100 mg PO BID #60 cap 07/28/23 Ensure High Protein 237 ml PO BID #60 can 07/28/23 Hydrocodone 10/APAP 325 [[place] 10/325*] 1 tab PO Q6HP PRN #30 tab 07/28/23 LORazepam [Ativan] 0.5 mg PO BID PRN #30 tab 07/28/23 carvediloL [Coreg*] 25 mg PO BID 6AM 6PM #60 tab 07/28/23 risperiDONE [Risperdal 0.25 MG TAB*] 0.5 mg PO BREAKFAST #30 tab 07/28/23 risperiDONE [Risperdal 1 mg tab*] 1 mg PO BEDTIME #30 tab 07/28/23 New Medications: LORazepam [Ativan] 0.5 mg PO BID PRN #30 tab PRN Reason: agitation Amox/Clavulanate [Augmentin 875-125 Tab] 875 mg PO DAILY #14 tab Docusate [Colace Cap*] 100 mg PO BID #60 cap carvediloL [Coreg*] 25 mg PO BID 6AM 6PM #60 tab Divalproex Sodium [Depakote ER] 250 mg PO BID #60 tab.sr.24h Ensure High Protein 237 ml PO BID #60 can Hydrocodone 10/APAP 325 [[place] 10/325*] 1 tab PO Q6HP PRN #30 tab PRN Reason: Pain Scale 8-10 (Severe) Calcium Carbonate [Oscal*] 500 mg PO BID PRN #60 tab PRN Reason: Indigestion risperiDONE [Risperdal 0.25 MG TAB*] 0.5 mg PO BREAKFAST #30 tab risperiDONE [Risperdal 1 mg tab*] 1 mg PO BEDTIME #30 tab Calcitrol [Rocaltrol*] 0.5 mcg PO DAILY #30 cap Cholecalciferol (Vitamin D3) [Vitamin D 1000 Iu Tab*] 2,000 unit PO DAILY #30 tab Physician Discharge Instructions: -DC IV and DC home after hemodialysis -Follow-up with PCP in 1 to 2 weeks -Follow-up with Nephrology in 1 to 2 weeks -Follow-up with GI in 1 to 2 weeks -Please call Dr. Chavez at [phone] if any questions regarding hospital stay -Please call nursing station at [phone] if any nursing or medication questions -Return to the emergency room if symptoms worsen Home Health Referral sent to: [facility] [phone] fax [phone] OPHD chair set up: [facility] Chair time- Tuesday, Tuesday, Tuesday at 1:45pm Diet: Renal Activity: Fall precautions Followup: Dean Adam MD [Primary Care Provider] - NONE,NONE [UNKNOWN] - Valentin Rg MD [ACTIVE - CAN ADMIT] - 1-2 Weeks Time spent managing pt's care (in minutes): 55
--- NOTE | 2023-07-28 21:39 | P.PN ---
Date of Service: 07/28/23 Vital Signs Temp Pulse Resp BP Pulse Ox 98.7 F 84 20 131/81 97 07/28/23 16:00 07/28/23 16:00 07/28/23 16:00 07/28/23 16:00 07/28/23 16:00 Assessment/ Plan: Nephrology Progress Note No Dyspnea No Chest Pain Waxing and waning mental status No Acute Events Overnight Case reviewed with his Vital Signs, Medications, Blood Work, and Imaging reviewed in the chart NAD. NCAT. MMM. Neck Supple. Normal Respiratory Effort. RRR. Abd ND. No C/C. LE Edema none. Left hand deformity. No Rash. Awake. Normal Speech. Poor hearing. Assessment & Plan ESRD -PD catheter removed -HD CVC status -HD TIW Hyponatremia -HD TIW HTN with CKD/ CHF -Continue Losartan -Continue Coreg Diastolic CHF, chronic -Daily weight Severe Protein Malnutrition Hypoalbuminemia -Protein supplementation as ordered -IV Albumin prn Anemia in CKD -Retacrit qHD -PRBC prn CKD MBD -Continue Ergo FUO -Cultures reviewed -Continue Abx Case reviewed with Dr. Chavez
== END 2023-07-28 16:32 | disposition home health service (06) | DRG 673 ==
LOC: ER 19:10 → ERHOLD 22:16 → 2ND 07-16 01:05
PROVIDERS: ADMIT Internal Medicine Sleep Medicine; ATTEND Hospitalist
PROC: 5A1D70Z Performance of Urinary Filtration, Intermittent, Less than 6 Hours Per Day (ICD-10-PCS; 2023-07-15)
PROC: 0JPT0XZ Removal of Tunneled Vascular Access Device from Trunk Subcutaneous Tissue and Fascia, Open Approach (ICD-10-PCS; 2023-07-15)
PROC: 02HV33Z Insertion of Infusion Device into Superior Vena Cava, Percutaneous Approach (ICD-10-PCS; 2023-07-16)
PROC: 3E0436Z Introduction of Nutritional Substance into Central Vein, Percutaneous Approach (ICD-10-PCS; 2023-07-16)
PROC: 0JH63XZ Insertion of Tunneled Vascular Access Device into Chest Subcutaneous Tissue and Fascia, Percutaneous Approach (ICD-10-PCS; principal; 2023-07-16 10:00)
PROC: 0HCJXZZ Extirpation of Matter from Left Upper Leg Skin, External Approach (ICD-10-PCS; 2023-07-22)
DX: T82.43XA Leakage of vascular dialysis catheter, initial encounter (principal); E43 Unspecified severe protein-calorie malnutrition; G93.41 Metabolic encephalopathy; K85.90 Acute pancreatitis without necrosis or infection, unspecified; N18.6 End stage renal disease; K65.9 Peritonitis, unspecified; E87.1 Hypo-osmolality and hyponatremia; I50.32 Chronic diastolic (congestive) heart failure; I13.2 Hypertensive heart and chronic kidney disease with heart failure and with stage 5 chronic kidney disease, or end stage renal disease; E11.22 Type 2 diabetes mellitus with diabetic chronic kidney disease; D63.1 Anemia in chronic kidney disease; I16.0 Hypertensive urgency; E88.09 Other disorders of plasma-protein metabolism, not elsewhere classified; E53.8 Deficiency of other specified B group vitamins; M71.312 Other bursal cyst, left shoulder; F29 Unspecified psychosis not due to a substance or known physiological condition; Z99.2 Dependence on renal dialysis; Z68.21 Body mass index [BMI] 21.0-21.9, adult; Z89.022 Acquired absence of left finger(s); Z87.891 Personal history of nicotine dependence; Y84.8 Other medical procedures as the cause of abnormal reaction of the patient, or of later complication, without mention of misadventure at the time of the procedure
CPT/HCPCS: 36415; 71045; 73200; 74160; 76000; 80048; 80053; 80061; 82042; 82607; 82945; 83615; 83690; 83735; 84100; 84145; 84157; 84443; 85014; 85018; 85025; 85379; 85610; 86140; 86706; 86850; 86900; 86901; 86920; 87040; 87070; 87340; 88108; 88300; 88302; 88304; 88305; 88312; 89050; 90935; 93005; 93306; 96365; 96366; 96375; 97116; 97161; 97530; 99285; A4216; C1752; C9113; J0360; J1100; J1170; J1200; J1630; J1642; J1644; J2001; J2250; J2371; J2405; J2543; J2704; J2765; J2930; J3010; J3486; J7040; J7050; P9016; P9047; Q9967